=== PATIENT | male | born 1960 | race Caucasian/White ===

== ENCOUNTER 2016-09-06 15:11 | Emergency (ER) | payer OTHER ==
[~2016-09-06] VITALS: Ht 177.8 cm; Wt 95.3 kg
[~2016-09-06 15:11] MED LIST: AUGMENTIN 875875 MG PO; CARAFATE1 G1 PO; CIPRO500 MG PO; CIPROFLOXACIN500 MG PO; COLACE100 MG PO; CYMBALTA60 MG PO; FLAGYL500 MG PO; LOMOTIL 0.025 M1 TA1 PO; MORPHINE SULFAT15 MG PO; NEXIUM40 MG PO; PANTOPRAZOLE SO40 MG PO; PERCOCET 325 MG1 TA2 PO; PERCOCET 325 MG1 TA7 PO; PRECOSE25 MG PO; PRISTIQ50 MG PO; VICODIN 5/500 505 MG PO; ZOFRAN4 MG PO; ZYRTEC10 M1 PO; [UNRECOGNIZED DRUG - REMARK]
[2016-09-06] MEDS ORDERED: PANTOPRAZOLE SO40 MG PO (15:27)
[2016-09-06] MEDS ORDERED: Zofran4 MG PO (15:27)
[2016-09-06] MEDS ORDERED: VENLAFAXINE150 MG PO (15:28)
[2016-09-06] MEDS ORDERED: MORPHINE SULFAT30 M9 PO (15:29)
[2016-09-06] MEDS ORDERED: ACETAMINOPHEN-O1 TAB PO (15:29)
[2016-09-06 16:24] LABS: BASO % 0.5 % (0.0-1.0); EOS # 0.3 10*3/uL (0.0-0.4); EOS % 5.3 % (1.0-4.0); HEMATOCRIT 37.6 % (42.0-52.0); HEMOGLOBIN 11.6 g/dl (14.0-18.0); LYMPH # 1.1 10*3/uL (1.3-4.4); LYMPH % 20.2 % (27.0-41.0); MEAN CELL VOLUME 83.4 fl (80.0-94.0); MEAN CORPUSCULAR HGB 25.7 pg (27.0-31.0); MEAN CORPUSCULAR HGB CONC 30.9 g/dl (33.0-37.0); MEAN PLATELET VOLUME 9.1 fl (9.6-12.3); MONO # 0.5 10*3/uL (0.1-1.0); MONO % 9.2 % (3.0-9.0); NEUT # 3.6 10*3/uL (2.3-7.9); NEUT % 64.4 % (47.0-73.0); PLATELET COUNT AUTOMATED 217 10*3/uL (130-400); RED BLOOD COUNT 4.51 10*6/uL (4.50-5.90); RED CELL DISTRI WIDTH 16.4 % (0-14.5); WHITE BLOOD COUNT 5.6 10*3/uL (4.8-10.8)
[2016-09-06 16:28] LABS: BILIRUBIN NEGATIVE (NEGATIVE); BLOOD NEGATIVE (NEGATIVE); CLARITY CLEAR (CLEAR); COLOR YELLOW (YELLOW); GLUCOSE NEGATIVE (NEGATIVE); KETONE NEGATIVE (NEGATIVE); LEUKO ESTERASE NEGATIVE (NEGATIVE); NITRITE NEGATIVE (NEGATIVE); PH 5.5 (5.0-9.0); PROTEIN NEGATIVE (NEGATIVE); SPECIFIC GRAVITY 1.015 (1.005-1.030); UROBILINOGEN 0.2 E.U./dl (0.2-1.0)
[2016-09-06 16:35] LABS: RBC 0-2 rbc/hpf (0-2); URINE REFLEX COMMENT NO (NO); WBC 0-2 wbc/hpf (0-5)
[2016-09-06 16:41] LABS: ALBUMIN 3.6 gm/dl (3.1-4.5); ALKALINE PHOSPHATASE 89 U/L (45-117); BILIRUBIN, TOTAL 0.3 mg/dl (0.2-1.0); BUN 15 mg/dl (7-24); CARBON DIOXIDE 28 mmol/L (21-32); CHLORIDE 106 mmol/L (98-107); EST GLOM FILT AFRICAN AMERICAN > 60 ml/min; GLUCOSE 94 mg/dL (65-99); POTASSIUM 3.8 mmol/L (3.5-5.1); SGOT/AST 28 IU/L (3-35); SGPT/ALT 59 U/L (12-78); SODIUM 142 mmol/L (136-145); TOTAL PROTEIN 7.1 gm/dL (6.4-8.2); TROPONIN I < 0.015 ng/ml (<0.5)
[2016-09-06] MEDS ORDERED: NAPROSYN500 MG PO (17:02)
[2016-09-06] MEDS ORDERED: ZOFRAN4 MG PO (17:02)
== END 2016-09-06 17:28 | disposition home or self-care (01) ==
LOC: ED 15:11
PROVIDERS: Nurse Practitioner Family
DX: R10.9 Unspecified abdominal pain (principal); R03.0 Elevated blood-pressure reading, without diagnosis of hypertension; Z90.49 Acquired absence of other specified parts of digestive tract

== ENCOUNTER 2016-11-25 13:52 | Inpatient (IN) | payer OTHER ==
[~2016-11-25] VITALS: Ht 177.8 cm; Wt 90.8 kg
[~2016-11-25 13:52] MED LIST changes: +ACETAMINOPHEN-O1 TAB PO; +MORPHINE SULFAT30 M9 PO; +NAPROSYN500 MG PO; +VENLAFAXINE150 MG PO; +Zofran4 MG PO
[2016-11-25 13:57] VITALS: BP 165/96
[2016-11-25] MEDS ORDERED: CREON 120000 U-1 ECC PO (13:58)
[2016-11-25] MEDS ORDERED: DICYCLOMINE HCL10 MG PO (13:59)
[2016-11-25] MEDS ORDERED: SILENOR3 M1 PO (13:59)
[2016-11-25 15:06] LABS: BASO % 0.4 % (0.0-1.0); EOS # 0.2 10*3/uL (0.0-0.4); EOS % 2.7 % (1.0-4.0); HEMOGLOBIN 12.4 g/dl (14.0-18.0); LYMPH # 1.5 10*3/uL (1.3-4.4); MEAN CELL VOLUME 80.9 fl (80.0-94.0); MEAN CORPUSCULAR HGB 25.7 pg (27.0-31.0); MEAN CORPUSCULAR HGB CONC 31.8 g/dl (33.0-37.0); MEAN PLATELET VOLUME 9.1 fl (9.6-12.3); MONO # 0.6 10*3/uL (0.1-1.0); MONO % 8.6 % (3.0-9.0); NEUT # 4.9 10*3/uL (2.3-7.9); NEUT % 66.8 % (47.0-73.0); PLATELET COUNT AUTOMATED 257 10*3/uL (130-400); RED BLOOD COUNT 4.82 10*6/uL (4.50-5.90); RED CELL DISTRI WIDTH 16.4 % (0-14.5); WHITE BLOOD COUNT 7.3 10*3/uL (4.8-10.8)
[2016-11-25 15:24] LABS: BUN 16 mg/dl (7-24); CARBON DIOXIDE 27 mmol/L (21-32); CHLORIDE 105 mmol/L (98-107); EST GLOM FILT AFRICAN AMERICAN > 60 ml/min; GLUCOSE 102 mg/dL (65-99); POTASSIUM 4.6 mmol/L (3.5-5.1); SODIUM 142 mmol/L (136-145)
[2016-11-25 15:27] VITALS: BP 132/87
[2016-11-25 15:31] LABS: TROPONIN I < 0.015 ng/ml (<0.045)
[2016-11-25 16:06] VITALS: BP 135/91
[2016-11-25 16:18] LABS: ALBUMIN 3.9 gm/dl (3.1-4.5); ALKALINE PHOSPHATASE 82 U/L (45-117); BILIRUBIN, DIRECT < 0.1 mg/dL (0.0-0.2); BILIRUBIN, TOTAL 0.1 mg/dl (0.2-1.0); SGOT/AST 44 IU/L (3-35); SGPT/ALT 52 U/L (12-78); TOTAL PROTEIN 7.5 gm/dL (6.4-8.2)
[2016-11-25 16:50] VITALS: BP 145/94
[2016-11-25 20:00] VITALS: BP 121/68
[2016-11-26] VITALS: BP 114/76
[2016-11-26 06:29] LABS: BASO % 0.6 % (0.0-1.0); EOS # 0.2 10*3/uL (0.0-0.4); EOS % 3.9 % (1.0-4.0); HEMATOCRIT 35.5 % (42.0-52.0); LYMPH # 1.4 10*3/uL (1.3-4.4); MEAN CELL VOLUME 81.6 fl (80.0-94.0); MEAN CORPUSCULAR HGB 25.3 pg (27.0-31.0); MONO # 0.5 10*3/uL (0.1-1.0); MONO % 9.6 % (3.0-9.0); NEUT # 2.8 10*3/uL (2.3-7.9); NEUT % 57.5 % (47.0-73.0); PLATELET COUNT AUTOMATED 225 10*3/uL (130-400); RED BLOOD COUNT 4.35 10*6/uL (4.50-5.90); RED CELL DISTRI WIDTH 16.3 % (0-14.5); WHITE BLOOD COUNT 4.9 10*3/uL (4.8-10.8)
[2016-11-26 06:45] LABS: ALBUMIN 3.2 gm/dl (3.1-4.5); ALKALINE PHOSPHATASE 86 U/L (45-117); BILIRUBIN, TOTAL 0.5 mg/dl (0.2-1.0); BUN 14 mg/dl (7-24); CARBON DIOXIDE 30 mmol/L (21-32); CHLORIDE 108 mmol/L (98-107); EST GLOM FILT AFRICAN AMERICAN > 60 ml/min; GLUCOSE 90 mg/dL (65-99); PHOSPHOROUS 3.5 mg/dL (2.5-4.9); POTASSIUM 4.1 mmol/L (3.5-5.1); SGOT/AST 182 IU/L (3-35); SGPT/ALT 162 U/L (12-78); SODIUM 141 mmol/L (136-145); TOTAL PROTEIN 6.2 gm/dL (6.4-8.2)
[2016-11-26 07:05] LABS: FOLIC ACID 20.33 ng/mL (>5.38)
[2016-11-26 08:00] VITALS: BP 116/67
[2016-11-26 12:00] VITALS: BP 120/68
[2016-11-26 16:00] VITALS: BP 124/73
[2016-11-26 20:00] VITALS: BP 143/88
[2016-11-27] VITALS: BP 130/74
[2016-11-27 08:00] VITALS: BP 150/80
[2016-11-27] MEDS ORDERED: ACETAMINOPHEN-H1 TA2 PO (10:09)
[2016-11-27 12:00] VITALS: BP 134/80
== END 2016-11-27 13:34 | disposition home or self-care (01) | DRG 389 ==
LOC: ED 13:52 → 4E 16:12 → EDHOLD 16:12 → 4E 16:38
PROVIDERS: Emergency Medicine; Internal Medicine
DX: K56.60 Unspecified intestinal obstruction (principal); F33.1 Major depressive disorder, recurrent, moderate; E44.0 Moderate protein-calorie malnutrition; K91.1 Postgastric surgery syndromes; J30.1 Allergic rhinitis due to pollen; K44.9 Diaphragmatic hernia without obstruction or gangrene; K21.9 Gastro-esophageal reflux disease without esophagitis; F41.9 Anxiety disorder, unspecified; E11.9 Type 2 diabetes mellitus without complications; R03.0 Elevated blood-pressure reading, without diagnosis of hypertension; Z96.659 Presence of unspecified artificial knee joint; Z90.49 Acquired absence of other specified parts of digestive tract; Z82.49 Family history of ischemic heart disease and other diseases of the circulatory system; Z83.6 Family history of other diseases of the respiratory system; Z83.3 Family history of diabetes mellitus; Z79.899 Other long term (current) drug therapy; Z68.28 Body mass index [BMI] 28.0-28.9, adult

== ENCOUNTER 2016-12-14 16:32 | Emergency (ER) | payer OTHER ==
[~2016-12-14] VITALS: Ht 177.8 cm; Wt 95.3 kg
[~2016-12-14 16:32] MED LIST changes: +ACETAMINOPHEN-H1 TA2 PO; +CREON 120000 U-1 ECC PO; +DICYCLOMINE HCL10 MG PO; +SILENOR3 M1 PO
[2016-12-14 17:17] LABS: BASO % 0.3 % (0.0-1.0); EOS # 0.2 10*3/uL (0.0-0.4); EOS % 3.6 % (1.0-4.0); HEMATOCRIT 34.7 % (42.0-52.0); HEMOGLOBIN 10.8 g/dl (14.0-18.0); LYMPH # 1.2 10*3/uL (1.3-4.4); LYMPH % 17.9 % (27.0-41.0); MEAN CELL VOLUME 81.8 fl (80.0-94.0); MEAN CORPUSCULAR HGB 25.5 pg (27.0-31.0); MEAN CORPUSCULAR HGB CONC 31.1 g/dl (33.0-37.0); MEAN PLATELET VOLUME 8.8 fl (9.6-12.3); MONO # 0.9 10*3/uL (0.1-1.0); MONO % 12.7 % (3.0-9.0); NEUT # 4.4 10*3/uL (2.3-7.9); NEUT % 65.1 % (47.0-73.0); PLATELET COUNT AUTOMATED 215 10*3/uL (130-400); RED BLOOD COUNT 4.24 10*6/uL (4.50-5.90); RED CELL DISTRI WIDTH 16.1 % (0-14.5); WHITE BLOOD COUNT 6.8 10*3/uL (4.8-10.8)
[2016-12-14 17:33] LABS: ALBUMIN 3.4 gm/dl (3.1-4.5); ALKALINE PHOSPHATASE 72 U/L (45-117); BILIRUBIN, TOTAL 0.2 mg/dl (0.2-1.0); BUN 15 mg/dl (7-24); CARBON DIOXIDE 27 mmol/L (21-32); CHLORIDE 106 mmol/L (98-107); EST GLOM FILT AFRICAN AMERICAN > 60 ml/min; GLUCOSE 101 mg/dL (65-99); POTASSIUM 3.9 mmol/L (3.5-5.1); SGOT/AST 25 IU/L (3-35); SGPT/ALT 56 U/L (12-78); SODIUM 142 mmol/L (136-145); TOTAL PROTEIN 6.7 gm/dL (6.4-8.2)
[2016-12-14 17:34] LABS: TROPONIN I < 0.015 ng/ml (<0.045)
[2016-12-14 18:16] LABS: BILIRUBIN NEGATIVE (NEGATIVE); BLOOD NEGATIVE (NEGATIVE); CLARITY CLEAR (CLEAR); COLOR YELLOW (YELLOW); GLUCOSE NEGATIVE (NEGATIVE); KETONE NEGATIVE (NEGATIVE); LEUKO ESTERASE NEGATIVE (NEGATIVE); NITRITE NEGATIVE (NEGATIVE); PH 6.5 (5.0-9.0); PROTEIN NEGATIVE (NEGATIVE); UROBILINOGEN 0.2 E.U./dl (0.2-1.0)
[2016-12-14 18:22] LABS: EPITHELIAL CELLS 0-2; URINE REFLEX COMMENT NO (NO); WBC 0-2 wbc/hpf (0-5)
== END 2016-12-14 20:40 | disposition short-term general hospital (02) ==
LOC: ED 16:32
PROVIDERS: Emergency Medicine
DX: K44.9 Diaphragmatic hernia without obstruction or gangrene (principal); R10.12 Left upper quadrant pain; K21.9 Gastro-esophageal reflux disease without esophagitis; F41.9 Anxiety disorder, unspecified; Z85.01 Personal history of malignant neoplasm of esophagus; Z98.890 Other specified postprocedural states; Z90.49 Acquired absence of other specified parts of digestive tract; Z87.891 Personal history of nicotine dependence; Z79.899 Other long term (current) drug therapy

== ENCOUNTER → 2017-01-22 | Outpatient (CLI) | payer OTHER ==
--- NOTE | ~2017-01-22 | SLPPN ---
[place], [place] TELESALES REPRESENTATIVE PROGRESS NOTE NAME: SUSAN QUINTERO UNIT #: [id number] ROOM: DOCTOR: FANG STARK Speech Language Pathology Treatment Note Page 1 1 of Patient Name: SUSAN QUINTERO Date: 01/22/2017 10:21 AM : 1960 SOC Date: 01/22/2017 [facility]: [facility] Provider #: [id number] Treating Clinician: ROMAN Wolfe-TELESALES REPRESENTATIVE Referring Physician: FANG STARK Onset Date Description Code Primary Diagnosis: 01/22/2017 A000.00 DIAGNOSIS FROM INTERFACE NOT FOUND IN [facility] TABLE Time In: 09:00 AM Time Out: 10:00 AM TELESALES REPRESENTATIVE Interventions and CPT Codes Consisted of: CPT Code Modifiers Minutes Units MOTION FLUOROSCOPY/SWALLOW 49465 60 1 Total Minutes: 60 Total Timed Minutes: 0 Total Untimed Minutes: 60 Total Units: 1 Total Timed Units: 0 Total Untimed Units: 1 01/22/2017 10:22:31 AM ROMAN Wolfe-TELESALES REPRESENTATIVE Date/Time State License #: [id number] CM:LISANDRO 1028 1028 [facility] THER[facility] [place]
--- NOTE | ~2017-01-22 | SLPPOC ---
[place], [place] UTILITIES GROUND WORKER PLAN OF CARE NAME: SUSAN QUINTERO UNIT #: [id number] ROOM: DOCTOR: FANG STARK Speech Language Pathology Plan of Care Page 1 1 (Initial Evaluation) of Patient Name: SUSAN QUINTERO Date: 01/22/2017 10:20 AM : 1960 SOC Date: 01/22/2017 Provider: [facility] Provider #: [id number] Treating Clinician: ROMAN Wolfe-UTILITIES GROUND WORKER Referring Physician: FANG STARK Visits From SOC: 1 Onset Date Description Code Primary Diagnosis: 01/22/2017 A000.00 DIAGNOSIS FROM INTERFACE NOT FOUND IN [facility] TABLE Subjective Comments: Initial evaluation created to initiate the electronic medical record. Please see [facility] for details. Initial Level Goals Functional Limitation Reporting Swallowing G8996 - Swallowing functional limitation, current status at therapy episode outset and at reporting intervals Current Status: CI - At least 1 percent but less than 20 percent impaired, limited or restricted G8997 - Swallowing functional limitation, projected goal status, at therapy episode outset, at reporting intervals, and at discharge or to end reporting Goal Status: CI - At least 1 percent but less than 20 percent impaired, limited or restricted G8998 - Swallowing functional limitation, discharge status, at discharge from therapy or to end reporting Discharge Status: CI - At least 1 percent but less than 20 percent impaired, limited or restricted 01/22/2017 10:21:42 AM FANG STARK Date/Time ROMAN Wolfe-UTILITIES GROUND WORKER Date I certify the need for these services furnished under this plan of treatment while under my care. State License #: [id number] CM:SLPPOC 1028 1028 IS THERAP[facility] [place]
--- NOTE | ~2017-01-22 | PROC NOTE ---
[place], [place] PROCEDURE NOTE NAME: SUSAN QUINTERO UNIT #: [id number] ROOM: DOCTOR: VONNIECARLOS BIRTHDATE: [birth year] DOS: 01/22/2017 MODIFIED BARIUM SWALLOW DOCTOR: Dr. Sander Brantley. RADIOLOGIST: Dr. Boyer. BACKGROUND INFORMATION: The patient a 56-year-old male was seen for a modified barium swallow. This test was ordered to view the anatomy and physiology of the swallowing mechanism and determine most appropriate means of nutrition. The patient's medical history is significant for esophageal cancer with esophagectomy. He was initially admitted to the hospital for 12/15/16 with a diagnosis of abdominal pain. Reports provided indicate status post EGD dilation, R-VATS, complete bipolar exclusion and postoperative respiratory failure. The patient had multiple intubations and underwent tracheotomy, 01/02/17. He has been weaned from that. The patient has had multiple hernia revisions and repairs. He is currently n.p.o. and fed by J tube. The patient has a spit fistula. He underwent a prior modified barium swallow at [facility], 01/08/17. At that time, he exhibited a moderate pharyngeal stage dysphagia due to reduced hyolaryngeal elevation, incomplete epiglottic inversion and reduced pharyngeal constriction. He was recommended n.p.o. For today's assessment, the patient was alert and easily able to follow all commands. Respiratory status was within normal limits. Oral peripheral examination revealed presence of natural teeth, which were in good condition. Lingual, labial, and buccal skills were within normal limits in terms of strength, range of motion, and coordination. The patient's volitional cough was adequate. Volitional swallow was weak and appeared reduced in elevation. METHODS AND MATERIALS USED FOR THE EXAM: The patient was positioned in the lateral plane and examination was viewed under fluoroscopy. The patient was presented with a variety of consistencies to assess swallowing skills including applesauce mixed with barium presented in one-quarter and one-half teaspoon amounts. Barium-coated banana presented in bite size pieces and thin liquid barium taken by cup. The patient took thin liquids independently in both small sips and larger sip size amount. ORAL PHASE: The patient achieved adequate labial seal around cup and spoon with no anterior loss. Bolus formation and transit were adequate with all consistencies. Mastication of soft solids was adequate. Tongue to palate contact was within normal limits. Tongue to posterior pharyngeal wall contact was mildly impaired with pureed and solid. Velar functioning was within normal limits with no nasal regurgitation. PHARYNGEAL PHASE: The pharyngeal swallow occurred within a timely manner. The patient's swallow [place], [place] PROCEDURE NOTE NAME: SUSAN QUINTERO UNIT #: [id number] ROOM: DOCTOR: CARLOS SHANKAR BIRTHDATE: [birth year] was mildly weak in general, laryngeal elevation was mildly reduced; however, no penetration or aspiration occurred with any consistency. The patient did present with residue in the valleculae with pureed and soft solid. He was not aware of this and therefore, did not independently re-swallow to clear the residue. This residue did clear when given swallows of thin liquids. ESOPHAGEAL PHASE: This phase of the swallow was not formally assessed during this examination. IMPRESSIONS AND RECOMMENDATIONS: Based upon assessment results, this 56-year-old patient presented with a mild oropharyngeal dysphagia. Tongue to posterior pharyngeal wall contact was decreased resulting in residue in the vallecula with pureed and soft solid. The patient was not aware of the residue to independently clear it. However, this residue did clear with liquid wash. Laryngeal elevation was mildly weak and reduced. No penetration or aspiration occurred with any consistency. Once medical clearance is received, recommended the patient begin a soft diet and thin liquids. Recommend use of safe swallow strategies such as small bites and sips, upright positioning for meals, alternating liquids and solids and remaining upright 30 minutes post-mealtime. The patient would also benefit from outpatient therapy to target pharyngeal strengthening exercises in order to further improve swallowing abilities. Results and recommendations were shared with the patient who verbalized understanding. Thank you very much for this referral. Should you have any questions regarding this patient, please contact the speech pathologist at [phone]. CARLOS SHANKAR CM:PROCNOTE:PROCEDURE NOTE [id number] CARLOS SHANKAR
--- NOTE | ~2017-01-22 | SLPIE ---
[place], [place] PRINTING ENGINEER INITIAL EVALUATION NAME: SUSAN QUINTERO UNIT #: [id number] ROOM: DOCTOR: FANG STARK Speech Language Pathology Initial Evaluation Page 1 1 of Patient Name: SUSAN QUINTERO Date: 01/22/2017 10:20 AM : 1960 SOC Date: 01/22/2017 Provider: [facility] Provider #: [id number] Treating Clinician: ROMAN Wolfe-PRINTING ENGINEER Referring Physician: FANG STARK Patient Information Address: [address] [place] [address] Physician: FANG STARK Physician #: City, [facility], Zip: [place], [place] [address] Occupation: Unknown # of Approved Visits: 0 Gender: Male Case Fitter: PRESTON LEON Rehabilitation Information / History Onset Date Code Description Primary Diagnosis: 01/22/2017 A000.00 DIAGNOSIS FROM INTERFACE NOT FOUND IN [facility] TABLE Subjective Comments: Initial evaluation created to initiate the electronic medical record. Please see [facility] for details. Clinical Findings Functional Goals Functional Limitation Reporting Swallowing G8996 - Swallowing functional limitation, current status at therapy episode outset and at reporting intervals Current Status: CI - At least 1 percent but less than 20 percent impaired, limited or restricted G8997 - Swallowing functional limitation, projected goal status, at therapy episode outset, at reporting intervals, and at discharge or to end reporting Goal Status: CI - At least 1 percent but less than 20 percent impaired, limited or restricted G8998 - Swallowing functional limitation, discharge status, at discharge from therapy or to end reporting Discharge Status: CI - At least 1 percent but less than 20 percent impaired, limited or restricted 01/22/2017 10:21:42 AM ROMAN Wolfe-PRINTING ENGINEER Date/Time [place], [place] PRINTING ENGINEER INITIAL EVALUATION NAME: SUSAN QUITNERO UNIT #: [id number] ROOM: DOCTOR: FANG STARK [facility] License #: [id number] CM:JONY 1028 1028 IS THERAPY [place]
== END | disposition home or self-care (01) ==
LOC: RAD/SH 08:55
DX: C15.9 Malignant neoplasm of esophagus, unspecified (principal); K44.9 Diaphragmatic hernia without obstruction or gangrene; Z90.49 Acquired absence of other specified parts of digestive tract

== ENCOUNTER 2017-02-02 09:53 | Emergency (ER) | payer OTHER ==
[~2017-02-02] VITALS: Wt 83.0 kg
[2017-02-02] MEDS ORDERED: NEXIUM20 M1 PO (09:58)
[2017-02-02] MEDS ORDERED: TOPROL XL25 MG PO (09:58)
[2017-02-02] MEDS ORDERED: SEROQUEL50 MG PO (09:59)
[2017-02-02] MEDS ORDERED: OXYCODONE HCL5 M1 PO (09:59)
[2017-02-02 10:39] LABS: BASO % 0.3 % (0.0-1.0); EOS # 0.1 10*3/uL (0.0-0.4); EOS % 2.1 % (1.0-4.0); HEMATOCRIT 41.6 % (42.0-52.0); LYMPH # 1.2 10*3/uL (1.3-4.4); MEAN CELL VOLUME 85.6 fl (80.0-94.0); MEAN CORPUSCULAR HGB 26.7 pg (27.0-31.0); MEAN CORPUSCULAR HGB CONC 31.3 g/dl (33.0-37.0); MEAN PLATELET VOLUME 9.2 fl (9.6-12.3); MONO # 0.6 10*3/uL (0.1-1.0); MONO % 8.9 % (3.0-9.0); NEUT # 4.8 10*3/uL (2.3-7.9); NEUT % 70.6 % (47.0-73.0); PLATELET COUNT AUTOMATED 266 10*3/uL (130-400); RED BLOOD COUNT 4.86 10*6/uL (4.50-5.90); RED CELL DISTRI WIDTH 18.5 % (0-14.5); WHITE BLOOD COUNT 6.8 10*3/uL (4.8-10.8)
[2017-02-02 10:42] LABS: BILIRUBIN NEGATIVE (NEGATIVE); BLOOD NEGATIVE (NEGATIVE); CLARITY SL CLOUDY (CLEAR); COLOR YELLOW (YELLOW); GLUCOSE 2+ (NEGATIVE); KETONE NEGATIVE (NEGATIVE); LEUKO ESTERASE NEGATIVE (NEGATIVE); NITRITE NEGATIVE (NEGATIVE); PROTEIN TRACE (NEGATIVE); SPECIFIC GRAVITY <= 1.005 (1.005-1.030)
[2017-02-02 10:47] LABS: PROTHROMBIN TIME 10.6 SECONDS (9.0-12.4)
[2017-02-02 10:54] LABS: MUCOUS TRACE; URINE REFLEX COMMENT NO (NO)
[2017-02-02 10:55] LABS: ALBUMIN 3.4 gm/dl (3.1-4.5); ALKALINE PHOSPHATASE 121 U/L (45-117); BILIRUBIN, TOTAL 0.4 mg/dl (0.2-1.0); BUN 18 mg/dl (7-24); CARBON DIOXIDE 28 mmol/L (21-32); CHLORIDE 103 mmol/L (98-107); CKMB 0.7 ng/ml (0.5-3.6); CPK 34 U/L (39-308); EST GLOM FILT AFRICAN AMERICAN > 60 ml/min; GLUCOSE 97 mg/dL (65-99); MAGNESIUM 2.3 mg/dL (1.5-2.1); POTASSIUM 4.1 mmol/L (3.5-5.1); SGOT/AST 15 IU/L (3-35); SGPT/ALT 20 U/L (12-78); SODIUM 142 mmol/L (136-145); TOTAL PROTEIN 7.6 gm/dL (6.4-8.2)
[2017-02-02 10:57] LABS: C-REACTIVE PROTEIN < 0.29 MG/DL (0-0.3); TROPONIN I < 0.015 ng/ml (<0.045)
[2017-02-02] MEDS ORDERED: OXYCODONE H5 MG/5 ML PO (14:28)
== END 2017-02-02 15:41 | disposition home or self-care (01) ==
LOC: ED 09:53
PROVIDERS: Emergency Medicine
DX: G89.29 Other chronic pain (principal); R10.9 Unspecified abdominal pain; K21.9 Gastro-esophageal reflux disease without esophagitis; E11.9 Type 2 diabetes mellitus without complications; Z79.899 Other long term (current) drug therapy

== ENCOUNTER → 2017-02-22 | Outpatient (CLI) | payer OTHER ==
[~2017-02-22] MED LIST changes: +NEURONTIN250 MG/5 M PO; +NEXIUM20 M1 PO; +OXYCODONE H5 MG/5 ML PO; +OXYCODONE HCL5 M1 PO; +SEROQUEL50 MG PO; +TOPROL XL25 MG PO
== END | disposition home or self-care (01) ==
LOC: LAB 07:02
DX: E44.1 Mild protein-calorie malnutrition (principal)

== ENCOUNTER 2017-02-23 10:57 | Emergency (ER) | payer OTHER ==
[~2017-02-23] VITALS: Ht 177.8 cm; Wt 83.0 kg
[~2017-02-23 10:57] MED LIST changes: -NEURONTIN250 MG/5 M PO
[2017-02-23] MEDS ORDERED: NEURONTIN250 MG/5 M PO (11:15)
[2017-02-23 11:27] LABS: BILIRUBIN NEGATIVE (NEGATIVE); BLOOD NEGATIVE (NEGATIVE); CLARITY CLEAR (CLEAR); COLOR YELLOW (YELLOW); GLUCOSE 3+ (NEGATIVE); KETONE NEGATIVE (NEGATIVE); LEUKO ESTERASE NEGATIVE (NEGATIVE); NITRITE NEGATIVE (NEGATIVE); PROTEIN NEGATIVE (NEGATIVE); SPECIFIC GRAVITY <= 1.005 (1.005-1.030); UROBILINOGEN 0.2 E.U./dl (0.2-1.0)
[2017-02-23 11:33] LABS: BACTERIA TRACE; URINE REFLEX COMMENT NO (NO)
[2017-02-23 12:07] LABS: BASO % 0.2 % (0.0-1.0); EOS # 0.1 10*3/uL (0.0-0.4); EOS % 1.1 % (1.0-4.0); HEMATOCRIT 37.4 % (42.0-52.0); LYMPH # 0.9 10*3/uL (1.3-4.4); LYMPH % 15.1 % (27.0-41.0); MEAN CELL VOLUME 86.4 fl (80.0-94.0); MEAN CORPUSCULAR HGB 27.7 pg (27.0-31.0); MEAN CORPUSCULAR HGB CONC 32.1 g/dl (33.0-37.0); MEAN PLATELET VOLUME 8.9 fl (9.6-12.3); MONO # 0.6 10*3/uL (0.1-1.0); MONO % 9.9 % (3.0-9.0); NEUT # 4.5 10*3/uL (2.3-7.9); NEUT % 73.4 % (47.0-73.0); PLATELET COUNT AUTOMATED 240 10*3/uL (130-400); RED BLOOD COUNT 4.33 10*6/uL (4.50-5.90); RED CELL DISTRI WIDTH 16.6 % (0-14.5); WHITE BLOOD COUNT 6.2 10*3/uL (4.8-10.8)
[2017-02-23 12:22] LABS: ALBUMIN 3.3 gm/dl (3.1-4.5); ALKALINE PHOSPHATASE 83 U/L (45-117); BILIRUBIN, TOTAL 0.3 mg/dl (0.2-1.0); BUN 16 mg/dl (7-24); CARBON DIOXIDE 29 mmol/L (21-32); CHLORIDE 106 mmol/L (98-107); EST GLOM FILT AFRICAN AMERICAN > 60 ml/min; GLUCOSE 101 mg/dL (65-99); MAGNESIUM 2.2 mg/dL (1.5-2.1); SGOT/AST 8 IU/L (3-35); SGPT/ALT 18 U/L (12-78); SODIUM 143 mmol/L (136-145); TOTAL PROTEIN 7.1 gm/dL (6.4-8.2)
[2017-02-23 12:27] LABS: C-REACTIVE PROTEIN < 0.29 MG/DL (0-0.3)
== END 2017-02-23 16:40 | disposition home or self-care (01) ==
LOC: ED 10:57
PROVIDERS: Emergency Medicine
DX: G89.29 Other chronic pain (principal); R10.31 Right lower quadrant pain; R11.0 Nausea; R19.7 Diarrhea, unspecified; Z87.891 Personal history of nicotine dependence; Z90.49 Acquired absence of other specified parts of digestive tract; K21.9 Gastro-esophageal reflux disease without esophagitis; E11.9 Type 2 diabetes mellitus without complications; Z79.899 Other long term (current) drug therapy

== ENCOUNTER 2017-03-14 17:27 | Emergency (ER) | payer OTHER ==
[~2017-03-14] VITALS: Ht 177.8 cm; Wt 83.0 kg
[~2017-03-14 17:27] MED LIST changes: +NEURONTIN250 MG/5 M PO
== END 2017-03-14 22:59 | disposition home or self-care (01) ==
LOC: ED 17:27
DX: M25.532 Pain in left wrist (principal); M25.432 Effusion, left wrist; R06.02 Shortness of breath; Z79.899 Other long term (current) drug therapy; Z87.891 Personal history of nicotine dependence

== ENCOUNTER 2017-03-15 13:30 | Emergency (ER) | payer OTHER ==
[~2017-03-15] VITALS: Ht 177.8 cm; Wt 80.3 kg
[2017-03-15 14:08] LABS: BASO % 0.3 % (0.0-1.0); EOS # 0.1 10*3/uL (0.0-0.4); EOS % 1.2 % (1.0-4.0); HEMATOCRIT 40.6 % (42.0-52.0); HEMOGLOBIN 12.8 g/dl (14.0-18.0); IG # 0.1 10*3/uL (0.0-0.1); LYMPH # 1.1 10*3/uL (1.3-4.4); MEAN CELL VOLUME 85.1 fl (80.0-94.0); MEAN CORPUSCULAR HGB 26.8 pg (27.0-31.0); MEAN CORPUSCULAR HGB CONC 31.5 g/dl (33.0-37.0); MEAN PLATELET VOLUME 9.8 fl (9.6-12.3); MONO # 0.6 10*3/uL (0.1-1.0); MONO % 10.2 % (3.0-9.0); NEUT % 68.5 % (47.0-73.0); PLATELET COUNT AUTOMATED 258 10*3/uL (130-400); RED BLOOD COUNT 4.77 10*6/uL (4.50-5.90); RED CELL DISTRI WIDTH 15.4 % (0-14.5); WHITE BLOOD COUNT 5.9 10*3/uL (4.8-10.8)
[2017-03-15 14:20] LABS: ALBUMIN 3.7 gm/dl (3.1-4.5); ALKALINE PHOSPHATASE 79 U/L (45-117); BILIRUBIN, TOTAL 0.5 mg/dl (0.2-1.0); BUN 16 mg/dl (7-24); CARBON DIOXIDE 22 mmol/L (21-32); CHLORIDE 113 mmol/L (98-107); CKMB 0.8 ng/ml (0.5-3.6); CPK 71 U/L (39-308); EST GLOM FILT AFRICAN AMERICAN > 60 ml/min; GLUCOSE 125 mg/dL (65-99); INTERNATIONAL NORM RATIO 1.1 (2.0-3.5); MAGNESIUM 2.2 mg/dL (1.5-2.1); POTASSIUM 3.6 mmol/L (3.5-5.1); PROTHROMBIN TIME 11.8 SECONDS (9.0-12.4); SGOT/AST 17 IU/L (3-35); SGPT/ALT 27 U/L (12-78); SODIUM 144 mmol/L (136-145); TOTAL PROTEIN 7.9 gm/dL (6.4-8.2)
[2017-03-15 14:22] LABS: C-REACTIVE PROTEIN < 0.29 MG/DL (0-0.3); TROPONIN I < 0.015 ng/ml (<0.045)
== END 2017-03-15 21:55 | disposition short-term general hospital (02) ==
LOC: ED 13:30
PROVIDERS: Emergency Medicine
DX: R06.02 Shortness of breath (principal); R19.7 Diarrhea, unspecified; K21.9 Gastro-esophageal reflux disease without esophagitis; E11.9 Type 2 diabetes mellitus without complications; Z87.891 Personal history of nicotine dependence; Z90.49 Acquired absence of other specified parts of digestive tract; Z79.899 Other long term (current) drug therapy

== ENCOUNTER → 2017-04-04 | Outpatient (CLI) | payer OTHER ==
[2017-04-04 08:13] LABS: BASO % 0.3 % (0.0-1.0); EOS # 0.3 10*3/uL (0.0-0.4); EOS % 7.7 % (1.0-4.0); HEMATOCRIT 37.8 % (42.0-52.0); HEMOGLOBIN 11.9 g/dl (14.0-18.0); LYMPH # 0.9 10*3/uL (1.3-4.4); LYMPH % 28.3 % (27.0-41.0); MEAN CELL VOLUME 86.3 fl (80.0-94.0); MEAN CORPUSCULAR HGB 27.2 pg (27.0-31.0); MEAN CORPUSCULAR HGB CONC 31.5 g/dl (33.0-37.0); MEAN PLATELET VOLUME 10.4 fl (9.6-12.3); MONO # 0.5 10*3/uL (0.1-1.0); MONO % 16.6 % (3.0-9.0); NEUT # 1.5 10*3/uL (2.3-7.9); NEUT % 46.8 % (47.0-73.0); PLATELET COUNT AUTOMATED 212 10*3/uL (130-400); RED BLOOD COUNT 4.38 10*6/uL (4.50-5.90); RED CELL DISTRI WIDTH 14.3 % (0-14.5); WHITE BLOOD COUNT 3.3 10*3/uL (4.8-10.8)
[2017-04-04 08:22] LABS: INTERNATIONAL NORM RATIO 1.1 (2.0-3.5); PROTHROMBIN TIME 11.3 SECONDS (9.0-12.4)
[2017-04-04 08:30] LABS: ALBUMIN 3.4 gm/dl (3.1-4.5); ALKALINE PHOSPHATASE 88 U/L (45-117); BILIRUBIN, DIRECT 0.1 mg/dL (0.0-0.2); BILIRUBIN, TOTAL 0.4 mg/dl (0.2-1.0); BUN 19 mg/dl (7-24); CARBON DIOXIDE 29 mmol/L (21-32); CHLORIDE 103 mmol/L (98-107); EST GLOM FILT AFRICAN AMERICAN > 60 ml/min; GLUCOSE 76 mg/dL (65-99); MAGNESIUM 1.9 mg/dL (1.5-2.1); PHOSPHOROUS 4.2 mg/dL (2.5-4.9); POTASSIUM 3.8 mmol/L (3.5-5.1); SGOT/AST 17 IU/L (3-35); SGPT/ALT 27 U/L (12-78); SODIUM 139 mmol/L (136-145)
== END | disposition home or self-care (01) ==
LOC: LAB 07:26 → CT 09:00
PROVIDERS: Specialist
DX: J98.4 Other disorders of lung (principal); C15.9 Malignant neoplasm of esophagus, unspecified; K44.9 Diaphragmatic hernia without obstruction or gangrene; R79.1 Abnormal coagulation profile; Z90.49 Acquired absence of other specified parts of digestive tract; Z98.890 Other specified postprocedural states

== ENCOUNTER 2017-04-09 17:12 | Inpatient (IN) | payer OTHER ==
[~2017-04-09] VITALS: Ht 177.8 cm; Wt 80.4 kg
[~2017-04-09 17:12] MED LIST changes: +NEURONTIN250 MG/5 M PEG; -NEURONTIN250 MG/5 M PO; +OXYCODONE HCL5 M1 PEG; -OXYCODONE HCL5 M1 PO; +SEROQUEL XR150 MG PEG; -SEROQUEL50 MG PO
[2017-04-09 17:19] VITALS: BP 120/80
[2017-04-09 17:39] VITALS: BP 115/66
[2017-04-09 18:06] LABS: BASO % 0.2 % (0.0-1.0); EOS # 0.1 10*3/uL (0.0-0.4); EOS % 1.5 % (1.0-4.0); HEMATOCRIT 37.7 % (42.0-52.0); HEMOGLOBIN 12.4 g/dl (14.0-18.0); LYMPH % 19.4 % (27.0-41.0); MEAN CELL VOLUME 82.9 fl (80.0-94.0); MEAN CORPUSCULAR HGB 27.3 pg (27.0-31.0); MEAN CORPUSCULAR HGB CONC 32.9 g/dl (33.0-37.0); MEAN PLATELET VOLUME 9.7 fl (9.6-12.3); MONO # 0.6 10*3/uL (0.1-1.0); MONO % 11.7 % (3.0-9.0); NEUT # 3.6 10*3/uL (2.3-7.9); PLATELET COUNT AUTOMATED 224 10*3/uL (130-400); RED BLOOD COUNT 4.55 10*6/uL (4.50-5.90); RED CELL DISTRI WIDTH 14.1 % (0-14.5); WHITE BLOOD COUNT 5.3 10*3/uL (4.8-10.8)
[2017-04-09 18:15] LABS: INTERNATIONAL NORM RATIO 1.1 (2.0-3.5); PROTHROMBIN TIME 11.4 SECONDS (9.0-12.4)
[2017-04-09 18:22] LABS: ALBUMIN 3.5 gm/dl (3.1-4.5); ALKALINE PHOSPHATASE 74 U/L (45-117); BILIRUBIN, TOTAL 0.4 mg/dl (0.2-1.0); BUN 18 mg/dl (7-24); CARBON DIOXIDE 23 mmol/L (21-32); CHLORIDE 107 mmol/L (98-107); EST GLOM FILT AFRICAN AMERICAN > 60 ml/min; GLUCOSE 100 mg/dL (65-99); POTASSIUM 3.6 mmol/L (3.5-5.1); SGOT/AST 15 IU/L (3-35); SGPT/ALT 21 U/L (12-78); SODIUM 139 mmol/L (136-145); TOTAL PROTEIN 7.1 gm/dL (6.4-8.2)
[2017-04-09 19:03] VITALS: BP 112/65
[2017-04-09 19:37] LABS: BILIRUBIN NEGATIVE (NEGATIVE); BLOOD NEGATIVE (NEGATIVE); CLARITY CLEAR (CLEAR); COLOR YELLOW (YELLOW); GLUCOSE NEGATIVE (NEGATIVE); KETONE 2+ (NEGATIVE); LEUKO ESTERASE NEGATIVE (NEGATIVE); NITRITE NEGATIVE (NEGATIVE); PH 8.5 (5.0-9.0); PROTEIN 1+ (NEGATIVE)
[2017-04-09 19:45] LABS: BACTERIA 1+; EPITHELIAL CELLS 0-2; RBC 0-2 rbc/hpf (0-2); URINE REFLEX COMMENT NO (NO); WBC 0-2 wbc/hpf (0-5)
[2017-04-09 20:58] VITALS: BP 115/72
[2017-04-09] MEDS ORDERED: DOXEPIN HC10 MG/1 ML PO (21:43)
[2017-04-09] MEDS ORDERED: FIBERSOURCE HN250 M3 PEG (21:49)
[2017-04-09 21:51] VITALS: BP 110/76
[2017-04-10] VITALS: BP 97/52
[2017-04-10 03:46] VITALS: BP 98/61
[2017-04-10 07:07] LABS: BASO % 0.3 % (0.0-1.0); EOS # 0.2 10*3/uL (0.0-0.4); EOS % 5.2 % (1.0-4.0); HEMOGLOBIN 11.2 g/dl (14.0-18.0); LYMPH # 0.9 10*3/uL (1.3-4.4); LYMPH % 24.5 % (27.0-41.0); MEAN CORPUSCULAR HGB 27.5 pg (27.0-31.0); MEAN PLATELET VOLUME 10.6 fl (9.6-12.3); MONO # 0.4 10*3/uL (0.1-1.0); MONO % 10.1 % (3.0-9.0); NEUT # 2.2 10*3/uL (2.3-7.9); NEUT % 59.6 % (47.0-73.0); PLATELET COUNT AUTOMATED 195 10*3/uL (130-400); RED BLOOD COUNT 4.07 10*6/uL (4.50-5.90); RED CELL DISTRI WIDTH 14.1 % (0-14.5); WHITE BLOOD COUNT 3.7 10*3/uL (4.8-10.8)
[2017-04-10 07:31] LABS: BUN 14 mg/dl (7-24); CARBON DIOXIDE 26 mmol/L (21-32); CHLORIDE 110 mmol/L (98-107); EST GLOM FILT AFRICAN AMERICAN > 60 ml/min; GLUCOSE 92 mg/dL (65-99); POTASSIUM 3.7 mmol/L (3.5-5.1); SODIUM 145 mmol/L (136-145)
[2017-04-10 08:00] VITALS: BP 105/59
[2017-04-10 12:00] VITALS: BP 109/56
[2017-04-10 16:00] VITALS: BP 103/72
== END 2017-04-10 18:00 | disposition home or self-care (01) | DRG 392 ==
LOC: ED 17:12 → 4E 19:59 → EDHOLD 19:59 → 4E 20:39
PROVIDERS: Internal Medicine; Physician Assistant
DX: R10.84 Generalized abdominal pain (principal); K90.9 Intestinal malabsorption, unspecified; R82.4 Acetonuria; D72.810 Lymphocytopenia; K91.1 Postgastric surgery syndromes; G89.29 Other chronic pain; R19.7 Diarrhea, unspecified; Z85.01 Personal history of malignant neoplasm of esophagus; Z82.49 Family history of ischemic heart disease and other diseases of the circulatory system; Z83.3 Family history of diabetes mellitus

== ENCOUNTER 2017-04-27 17:16 | Inpatient (IN) | payer OTHER ==
[~2017-04-27] VITALS: Ht 177.8 cm; Wt 76.2 kg
[~2017-04-27 17:16] MED LIST changes: +DOXEPIN HC10 MG/1 ML PO; +FIBERSOURCE HN250 M3 PEG
[2017-04-27 17:21] VITALS: BP 114/65
--- NOTE | 2017-04-27 17:42 | NUR ---
PATIENT DENIES ANY VOMITTING AT THIS TIME.
[2017-04-27 17:48] LABS: BASO % 0.5 % (0.0-1.0); EOS # 0.2 10*3/uL (0.0-0.4); EOS % 2.7 % (1.0-4.0); HEMATOCRIT 39.2 % (42.0-52.0); HEMOGLOBIN 12.6 g/dl (14.0-18.0); LYMPH # 1.3 10*3/uL (1.3-4.4); LYMPH % 22.5 % (27.0-41.0); MEAN CELL VOLUME 84.1 fl (80.0-94.0); MEAN CORPUSCULAR HGB CONC 32.1 g/dl (33.0-37.0); MONO # 0.8 10*3/uL (0.1-1.0); MONO % 13.7 % (3.0-9.0); NEUT # 3.4 10*3/uL (2.3-7.9); NEUT % 60.2 % (47.0-73.0); PLATELET COUNT AUTOMATED 213 10*3/uL (130-400); RED BLOOD COUNT 4.66 10*6/uL (4.50-5.90); RED CELL DISTRI WIDTH 13.9 % (0-14.5); WHITE BLOOD COUNT 5.6 10*3/uL (4.8-10.8)
[2017-04-27 18:03] LABS: ALBUMIN 3.6 gm/dl (3.1-4.5); ALKALINE PHOSPHATASE 91 U/L (45-117); BUN 19 mg/dl (7-24); CHLORIDE 105 mmol/L (98-107); CREATININE 0.83 mg/dL (0.70-1.30); LIPASE 64 U/L (73-393); MAGNESIUM 2.3 mg/dL (1.5-2.1); POTASSIUM 3.4 mmol/L (3.5-5.1); SGOT/AST 26 IU/L (3-35); SGPT/ALT 36 U/L (12-78); SODIUM 140 mmol/L (136-145); TOTAL PROTEIN 7.5 gm/dL (6.4-8.2)
--- NOTE | 2017-04-27 18:22 | NUR ---
PATIENT HAS A BAG NOTED FOR DRAINAGE STATES THAT HE IS DISCONNECTED FROM HIS ESOPHAGUS. PATIENT STATES HE HAS ESOPHAGEAL CANCER. STATES THAT THE DRAINAGE BAG WAS PLACED 12/22/16.
[2017-04-27 20:30] VITALS: BP 124/90
[2017-04-27] MEDS ORDERED: QUETIAPINE FUMA25 MG PO (20:35)
[2017-04-27] MEDS ORDERED: QUETIAPINE FUMA50 M1 PO (20:35)
[2017-04-27 20:41] VITALS: BP 124/90
--- NOTE | 2017-04-27 20:55 | NUR ---
Time: 2029 A 56 year old MALE admitted to under services of BEATRIZ GOODEN DO, Pt. arrived via bed from ER. Chief complaint: DIARRHEA ABDOMINAL PAIN. ANSON OWENS
[2017-04-28] VITALS: BP 92/54
--- NOTE | 2017-04-28 00:43 | NUR ---
PT C/O OF LOWER ABDOMINAL PAIN RATING 7/10, SHARP. STABBING PAIN. REPOSITIONING INEFFECTIVE FOR PAIN RELIEF. PRN MORPHINE GIVEN PER ORDER
--- NOTE | 2017-04-28 01:12 | NUR ---
PER PT PRN MORPHINE WAS EFFECTIVE FOR PAIN.
[2017-04-28 06:19] LABS: BASO % 0.3 % (0.0-1.0); EOS # 0.1 10*3/uL (0.0-0.4); EOS % 3.4 % (1.0-4.0); HEMATOCRIT 36.6 % (42.0-52.0); HEMOGLOBIN 11.4 g/dl (14.0-18.0); LYMPH # 0.7 10*3/uL (1.3-4.4); LYMPH % 18.7 % (27.0-41.0); MEAN CELL VOLUME 85.5 fl (80.0-94.0); MEAN CORPUSCULAR HGB 26.6 pg (27.0-31.0); MEAN CORPUSCULAR HGB CONC 31.1 g/dl (33.0-37.0); MEAN PLATELET VOLUME 10.6 fl (9.6-12.3); MONO # 0.4 10*3/uL (0.1-1.0); MONO % 11.1 % (3.0-9.0); NEUT # 2.5 10*3/uL (2.3-7.9); NEUT % 66.2 % (47.0-73.0); PLATELET COUNT AUTOMATED 168 10*3/uL (130-400); RED BLOOD COUNT 4.28 10*6/uL (4.50-5.90); WHITE BLOOD COUNT 3.8 10*3/uL (4.8-10.8)
[2017-04-28 06:49] LABS: ALBUMIN 2.9 gm/dl (3.1-4.5); ALKALINE PHOSPHATASE 75 U/L (45-117); BUN 13 mg/dl (7-24); CHLORIDE 111 mmol/L (98-107); CHOLESTEROL 111 mg/dL (<200); CREATININE 0.64 mg/dL (0.70-1.30); HDL CHOLESTEROL 51 mg/dl (40-60); LDL CHOLESTEROL 50 mg/dL (9-159); MAGNESIUM 2.1 mg/dL (1.5-2.1); PHOSPHOROUS 3.1 mg/dL (2.5-4.9); POTASSIUM 4.2 mmol/L (3.5-5.1); SGOT/AST 16 IU/L (3-35); SGPT/ALT 25 U/L (12-78); SODIUM 143 mmol/L (136-145); TOTAL PROTEIN 6.2 gm/dL (6.4-8.2); TRIGLYCERIDES 51 mg/dl (<150); VLDL CHOLESTEROL 10 mg/dL (6-40)
[2017-04-28 06:54] LABS: THYROID STIM HORMONE (HS) 0.667 uIU/ml (0.358-4.75)
[2017-04-28 07:02] LABS: ACT PARTIAL THROMBO TIME 29.1 SECONDS (20.8-31.5); INTERNATIONAL NORM RATIO 1.1 (2.0-3.5)
[2017-04-28 08:00] VITALS: BP 127/72
[2017-04-28 08:03] LABS: VITAMIN D, 25-HYDROXY 31.7 ng/mL (30-100)
--- NOTE | 2017-04-28 08:10 | NUR ---
PRN DILAUDID GIVEN PER PT'S REQUEST FOR C/O ABD. PAIN THAT RATES A 7 ON PAIN SCALE 1-10.
--- NOTE | 2017-04-28 09:18 | NUR ---
PT STATES SOME RELIEF OF PAIN WITH EARLIER DILAUDID. DR Teena CALDERON NOTIFIED OF PT'S CONTINUED NAUSEA EVEN WITH EARLIER PRN ZOFRAN.
--- NOTE | 2017-04-28 10:04 | NUR ---
MEDICATED PT PER PRN ORDER WITH ROXICODONE FOR PT'S C/O ABD. PAIN THAT RATES A 7 ON 1-10 PAIN SCALE AND ZOFRAN FOR PT'S C/O NAUSEA.
--- NOTE | 2017-04-28 10:30 | NUR ---
PT STATES RELIEF OF NAUSESA WITH EARLIER ZOFRAN.
--- NOTE | 2017-04-28 10:40 | NUR ---
DR MARTINEZ IN TO SEE PT EARLIER. NEW ORDERS RECEIVED. MEDICATED PT PER PRN ORDER WITH DILAUDID FOR C/O ABD. PAIN THAT RATES A 7 ON 1-10 PAIN SCALE. IV FLUIDS CHANGED TO D5LR.
--- NOTE | 2017-04-28 11:00 | NUR ---
PT STATES SOME RELIEF OF PAIN WITH EARLIER DILAUDID.
[2017-04-28 12:00] VITALS: BP 111/60
--- NOTE | 2017-04-28 12:43 | NUR ---
MED REC REVEIWED WITH PT.
--- NOTE | 2017-04-28 12:58 | NUR ---
MEDICATED PT PER PRN ORDER WITH DILAUDID FOR C/O ABD. PAIN THAT RATES A 6 ON 1-10 PAIN SCALE.
--- NOTE | 2017-04-28 13:30 | NUR ---
PT STATES SOME RELIEF OF PAIN WITH EARLIER DILAUDID. PT STATES "IT WORKS FOR ABOUT 45 MINUTES."
--- NOTE | 2017-04-28 14:15 | NUR ---
MEDICATED PT PER PRN ORDER WITH DILAUDID FOR C/O ABD. PAIN THAT RATES A 7 ON 1-10 PAIN SCALE AND PHENERGAN FOR C/O NAUSEA.
--- NOTE | 2017-04-28 14:45 | NUR ---
PT STATES SOME RELIEF OF PAIN AND NAUSEA WITH EARLIER PRN MEDS.
--- NOTE | 2017-04-28 15:12 | NUR ---
MEDICATED WITH DILAUDID IV FOR PAIN IN ESOPHAGUS OF 7/10 ON THE PAIN SCALE.
--- NOTE | 2017-04-28 15:53 | NUR ---
STATES THAT PAIN MED WORKS FOR ABOUT 45 MINUTES AND THEN RETURNS.
[2017-04-28 16:00] VITALS: BP 102/62
--- NOTE | 2017-04-28 16:23 | NUR ---
MEDICATED FOR PAIN OF 10/10 IN ESOPHAGUS.
--- NOTE | 2017-04-28 17:22 | NUR ---
MEDICATED FOR PAIN OF 5/10 ON THE PAIN SCALE.
--- NOTE | 2017-04-28 18:19 | NUR ---
EARLIER PAIN MED HELPS FOR ABOUT 50 MINUTES. MEDICATED FOR PAIN IN STOMACH OF 5/10 ON THE PAIN SCALE.
--- NOTE | 2017-04-28 19:18 | NUR ---
MEDICATED WITH DILAUDID IV FOR PAIN LAST SHOT HELPED FOR ABOUT 50 MINUTES. STOMACH PAIN IS 5/10 ON THE PAIN SCALE.
--- NOTE | 2017-04-28 19:20 | NUR ---
MEDICATED FOR NAUSEA.
[2017-04-28 20:00] VITALS: BP 98/64
--- NOTE | 2017-04-28 20:00 | NUR ---
PER PT PRN PAIN MEDICATION AND NAUSEA MEDICATION WERE EFFECTIVE
--- NOTE | 2017-04-28 20:28 | NUR ---
PT C/O OF LOWER ABD PAIN RATING 5/10. PRN DILAUDID GIVEN PER ORDER
--- NOTE | 2017-04-28 21:00 | NUR ---
PRN DILAUDID WAS EFFECTIVE FOR PAIN PER PT
--- NOTE | 2017-04-28 21:55 | NUR ---
PT C/O OF LOWER ABD PAIN RATING 4/10. PRN DILAUDID GIVEN PER ORDER
--- NOTE | 2017-04-28 23:16 | NUR ---
PT C/O OF LOWER ABD PAIN RATING 4/10. PRN DILAIDUD PER ORDER
[2017-04-29] VITALS: BP 105/63
--- NOTE | 2017-04-29 | NUR ---
PT RESTING IN BED WITH EYES CLOSED AT THIS TIME NO COMPLAINTS
--- NOTE | 2017-04-29 02:12 | NUR ---
PT C/O OF LOWER ABD PAIN MEDICATED FOR PAIN PER ORDER
--- NOTE | 2017-04-29 03:47 | NUR ---
PT MEDICATED FOR PAIN
--- NOTE | 2017-04-29 04:30 | NUR ---
PT RESTING IN BED WITH EYES CLOSED NO COMPLAINTS AT THIS TIME
--- NOTE | 2017-04-29 05:54 | NUR ---
PT C/O OF ABD PAIN RATING 5/10 AND NAUSEA. MEDICATED PER ORDER
[2017-04-29 06:44] LABS: BUN 9 mg/dl (7-24); CHLORIDE 109 mmol/L (98-107); CREATININE 0.72 mg/dL (0.70-1.30); POTASSIUM 3.8 mmol/L (3.5-5.1); SODIUM 145 mmol/L (136-145)
[2017-04-29 08:00] VITALS: BP 101/64
--- NOTE | 2017-04-29 08:03 | NUR ---
MEDICATED FOR STOMACH PAIN THAT NEVER TOTALLY GOES AWAY OF 5/10 ON THE PAIN SCALE.
--- NOTE | 2017-04-29 09:16 | NUR ---
MEDICATED FOR CONTINUED STOMACH PAIN. OF 4/10 ON PAIN SCALE.
--- NOTE | 2017-04-29 10:20 | NUR ---
MEDICATED FOR CONTINUED STOMACH PAIN OF 4/ OUT OF 10.
--- NOTE | 2017-04-29 11:27 | NUR ---
MEDICATED FOR STOMACH PAIN THAT REMAINS A FOUR ON THE PAIN SCALE.
[2017-04-29 12:00] VITALS: BP 113/79
--- NOTE | 2017-04-29 12:33 | NUR ---
MEDICATED FOR STOMACH PAIN THAT NEVER REALLY TOTALLY LEAVES OF 4 OUT OF 10 ON THE PAIN SCALE.
--- NOTE | 2017-04-29 13:32 | NUR ---
MEDICATED FOR ABDOMINAL PAIN OF 5/10 ON THE PAIN SCALE. NEVER TOTALLY RELIEVED FROM ABDOMINAL PAIN.
--- NOTE | 2017-04-29 14:34 | NUR ---
MEDICATED FOR PAIN OF 4/10 IN HIS STOMACH.
--- NOTE | 2017-04-29 15:47 | NUR ---
MEDICATED FOR ABDONMINAL PAIN OF 4 ON PAIN SCALE.
[2017-04-29 16:00] VITALS: BP 104/67
--- NOTE | 2017-04-29 16:58 | NUR ---
MEDICATED FOR NAUSEA.
--- NOTE | 2017-04-29 17:49 | NUR ---
MEDICATED FOR PAIN OF 4 ON THE PAIN SCALE. SAYS EARLIER NAUSEA MEDICINE WA EFFECTIVE.
--- NOTE | 2017-04-29 18:51 | NUR ---
MEDICATED FOR PAIN OF 4 ON THE PAIN SCALE IN HIS STOMACH EARLIER MEDICATION HELPS FOR A WHILE.
--- NOTE | 2017-04-29 19:48 | NUR ---
Medicated with dilaudid iv per prn order for complaints of abdominal pain. States pain is located in lower quads of abdomen.
[2017-04-29 20:00] VITALS: BP 112/67
--- NOTE | 2017-04-29 20:50 | NUR ---
Medicated with dilaudid iv per prn order for complaints of continued abdominal pain. Pt states that medication is effective for pain.
--- NOTE | 2017-04-29 21:48 | NUR ---
Medicated with dilaudid iv per prn order for complaints of continued abdominal pain. Pt also requesting phenergan for nausea.
--- NOTE | 2017-04-29 21:58 | NUR ---
Medicated with phenergan iv per prn order via infusion pump per policy.
--- NOTE | 2017-04-29 22:15 | NUR ---
States that dilaudid and phenergan effective for pain and nausea.
--- NOTE | 2017-04-29 22:50 | NUR ---
Medicated with dilaudid iv per prn order for complaints of abdominal pain.
--- NOTE | 2017-04-29 23:15 | NUR ---
ASSUMED CARE 0F PT AT THIS TIME. CALL LIGHT WITH IN REACH
[2017-04-30] VITALS: BP 117/71
--- NOTE | 2017-04-30 01:15 | NUR ---
MEDICATED PATIENT WITH DILUAID WILL REASSESS FOR EFFECTIVENESS OF MEDICATION
--- NOTE | 2017-04-30 02:11 | NUR ---
PT REPORTED ABDOMINAL PAIN REQUESTED PRN ROA MEDICATION, ADMISNISTERED DILAUDID IV ORDERED WILL MONITOR EFFECTS
--- NOTE | 2017-04-30 03:11 | NUR ---
PT RESTING IN BED NO FURTHER C/O PAIN PRN DILAUDID EFFECTIVE AT THIS TIME
[2017-04-30 06:19] LABS: BASO % 0.5 % (0.0-1.0); EOS # 0.2 10*3/uL (0.0-0.4); EOS % 6.2 % (1.0-4.0); HEMATOCRIT 36.2 % (42.0-52.0); HEMOGLOBIN 11.2 g/dl (14.0-18.0); LYMPH # 0.9 10*3/uL (1.3-4.4); LYMPH % 21.8 % (27.0-41.0); MEAN CORPUSCULAR HGB 26.3 pg (27.0-31.0); MEAN CORPUSCULAR HGB CONC 30.9 g/dl (33.0-37.0); MEAN PLATELET VOLUME 10.6 fl (9.6-12.3); MONO # 0.4 10*3/uL (0.1-1.0); NEUT # 2.4 10*3/uL (2.3-7.9); NEUT % 61.2 % (47.0-73.0); PLATELET COUNT AUTOMATED 163 10*3/uL (130-400); RED BLOOD COUNT 4.26 10*6/uL (4.50-5.90); RED CELL DISTRI WIDTH 13.9 % (0-14.5); WHITE BLOOD COUNT 3.9 10*3/uL (4.8-10.8)
[2017-04-30 06:41] LABS: BUN 7 mg/dl (7-24); CHLORIDE 107 mmol/L (98-107); CREATININE 0.73 mg/dL (0.70-1.30); POTASSIUM 3.3 mmol/L (3.5-5.1); SODIUM 143 mmol/L (136-145)
[2017-04-30 08:00] VITALS: BP 120/79
--- NOTE | 2017-04-30 08:00 | NUR ---
Patient resting quietly with no c/o discomfort. Respirations easy and regular. Vital signs stable. No overt distress. MAYTE DENNIS R
--- NOTE | 2017-04-30 08:36 | NUR ---
PT REQUESTED AND WAS MEDICATED WITH DILAUDID FOR C/O ABD PAIN. CALL LIGHT IN REACH. WILL MONITOR
--- NOTE | 2017-04-30 09:38 | NUR ---
Integrative Medicine Physician in to talk to patient. Patient states lives at home with . There are few steps in the home. Physician: kiersten Pharmacy: [facility] health services: none Patient's level of ADLs: INDEPENDENT Patient has working utilities: all working DME: none Follow-up physician's appointment after d/c: will be made by hospitalist nurse director upon discharge Does patient want to access PORTAL?: no Discharge plan discussed with patient, patient states he lives at home, gets around fine and doesn't need anything, case management will follow. PORTIA RIVERA
[2017-04-30] MEDS ORDERED: OXYCODONE H5 MG/5 ML PO ×2 (09:52→09:56)
[2017-04-30] MEDS ORDERED: PHENERGAN6.25 MG/1 PEG (09:56)
[2017-04-30] MEDS ORDERED: KLORVESS,K40 MEQ/30 PEG (09:56)
--- NOTE | 2017-04-30 10:40 | NUR ---
PT REQUESTED AND WAS MEDICATED WITH DILAUDID IV FOR C/O ABD PAIN. CALL LIGHT IN REACH. WILL MONITOR
--- NOTE | 2017-04-30 11:02 | NUR ---
Discharge instructions reviewed with patient/family. Patient receptive and verbalizes understanding. Follow-up care arranged. Written instructions given to patient/family. MAYTE DENNIS
== END 2017-04-30 11:02 | disposition home or self-care (01) | DRG 392 ==
LOC: ED 17:16 → 4E 19:16 → EDHOLD 19:16 → 4E 20:04
PROVIDERS: Emergency Medicine; Hospitalist; Internal Medicine; ADMIT Internal Medicine
DX: K90.9 Intestinal malabsorption, unspecified (principal); K76.0 Fatty (change of) liver, not elsewhere classified; F32.9 Major depressive disorder, single episode, unspecified; D64.9 Anemia, unspecified; E11.9 Type 2 diabetes mellitus without complications; F41.9 Anxiety disorder, unspecified; E87.6 Hypokalemia; K44.9 Diaphragmatic hernia without obstruction or gangrene; G89.29 Other chronic pain; Z96.651 Presence of right artificial knee joint; K21.9 Gastro-esophageal reflux disease without esophagitis; Z87.891 Personal history of nicotine dependence; Z85.01 Personal history of malignant neoplasm of esophagus; Z79.899 Other long term (current) drug therapy; Z90.49 Acquired absence of other specified parts of digestive tract; Z83.3 Family history of diabetes mellitus; Z82.49 Family history of ischemic heart disease and other diseases of the circulatory system; Z82.5 Family history of asthma and other chronic lower respiratory diseases; Z82.3 Family history of stroke

== ENCOUNTER 2017-05-01 11:27 | Inpatient (IN) | payer OTHER ==
[~2017-05-01] VITALS: Ht 177.8 cm; Wt 77.6 kg
[~2017-05-01 11:27] MED LIST changes: +KLORVESS,K40 MEQ/30 PEG; +PHENERGAN6.25 MG/1 PEG; +QUETIAPINE FUMA25 MG PO; +QUETIAPINE FUMA50 M1 PO
[2017-05-01 11:40] VITALS: BP 109/74
--- NOTE | 2017-05-01 11:40 | NUR ---
Time: 1139 A 56 year old MALE admitted to under services of BEATRIZ GOODEN DO, Pt. arrived via ambulatory from [place]. Chief complaint: C/O NOT TOLERATING TUBE FEEDINGS, DIARRHEA CAUSING DEHYDRATION AND ASSOCIATED PAIN. MASON KU II
[2017-05-01] MEDS ORDERED: OXYCODONE H5 MG/5 ML PEG (12:07)
--- NOTE | 2017-05-01 13:20 | NUR ---
IV started left antecubital with #22 angiocath after 2 attempts. The IV site was prepped with Chloraprep. Heparin lock attached. IV solution NS infusing at 100 cc/hr. Sterile dressing applied. Patient tolerated precedure well. Procedure performed according to [facility] policy & procedure. BERENICE URBINA
--- NOTE | 2017-05-01 13:22 | NUR ---
PT RESTING IN BED. C/O ABDOMINAL PAIN, RATES PAIN 8 ON PAIN SCALE. MEDICATED WITH MORPHINE IV PER PRN ORDER, SEE EMAR. ALSO C/O NAUSEA, MEDICATED WITH PHENERGAN IM PER PRN ORDER, SEE EMAR. CALL LIGHT IN REACH.
--- NOTE | 2017-05-01 14:00 | NUR ---
STATES PAIN MEDS DIDN'T HELP MUCH. CALLED DR. PIZARRO SHE WILL ASK DR. MARTINEZ.
[2017-05-01 14:16] LABS: BASO % 0.2 % (0.0-1.0); EOS # 0.2 10*3/uL (0.0-0.4); EOS % 3.7 % (1.0-4.0); HEMATOCRIT 34.9 % (42.0-52.0); HEMOGLOBIN 11.4 g/dl (14.0-18.0); LYMPH # 0.9 10*3/uL (1.3-4.4); LYMPH % 21.1 % (27.0-41.0); MEAN CELL VOLUME 83.1 fl (80.0-94.0); MEAN CORPUSCULAR HGB 27.1 pg (27.0-31.0); MEAN CORPUSCULAR HGB CONC 32.7 g/dl (33.0-37.0); MEAN PLATELET VOLUME 10.1 fl (9.6-12.3); MONO # 0.4 10*3/uL (0.1-1.0); MONO % 8.8 % (3.0-9.0); NEUT # 2.7 10*3/uL (2.3-7.9); NEUT % 65.7 % (47.0-73.0); PLATELET COUNT AUTOMATED 170 10*3/uL (130-400); RED CELL DISTRI WIDTH 13.7 % (0-14.5); WHITE BLOOD COUNT 4.1 10*3/uL (4.8-10.8)
--- NOTE | 2017-05-01 14:25 | NUR ---
MEDICATED WITH DILAUDID IV PER PRN ORDER, SEE EMAR. FOR C/O ABDOMINAL PAIN, RATES PAIN 7 ON PAIN SCALE. CALL LIGHT IN REACH. ABD TENDER TO TOUCH.
[2017-05-01 14:47] LABS: ALBUMIN 3.2 gm/dl (3.1-4.5); ALKALINE PHOSPHATASE 70 U/L (45-117); BUN 11 mg/dl (7-24); CHLORIDE 109 mmol/L (98-107); CREATININE 0.72 mg/dL (0.70-1.30); MAGNESIUM 1.9 mg/dL (1.5-2.1); PHOSPHOROUS 1.9 mg/dL (2.5-4.9); SGOT/AST 14 IU/L (3-35); SGPT/ALT 20 U/L (12-78); SODIUM 142 mmol/L (136-145); TOTAL PROTEIN 6.3 gm/dL (6.4-8.2)
[2017-05-01 16:00] VITALS: BP 124/83
--- NOTE | 2017-05-01 17:08 | NUR ---
DR PIZARRO CALLED RE: PT C/O ABDOMINAL PAIN 05/29. ORDERS TO FOLLOW.
--- NOTE | 2017-05-01 18:50 | NUR ---
PT REQUESTED AND WAS MEDICATED WITH DILAUDID FOR C/O ABDOMINAL PAIN. CALL LIGHT IN REACH. WILL MONITOR
[2017-05-01 20:00] VITALS: BP 121/75
[2017-05-02] VITALS: BP 109/69
--- NOTE | 2017-05-02 01:50 | NUR ---
PT MEDICATED WITH PRN DILAUDID IVP ORDERED. PT STATES THAT PAIN MED IS EFFECTIVE FOR A SHORT DURATION. ADVISED PT THAT IF PAIN MED IS INEFFECTIVE, THIS NURSE CAN CALL DR CONTINUOUS VULCANIZING MACHINE OPERATOR FOR DIFFERENT DRUG. PT DENIES NEED FOR DIFFERENT MEDICATION.
--- NOTE | 2017-05-02 02:35 | NUR ---
24 HR chart check completed.
--- NOTE | 2017-05-02 06:00 | NUR ---
PT STATES THAT PRN PHENERGAN WAS EFFECTIVE FOR NAUSEA AND PRN DILAUDID EFFECTIVE FOR PAIN RELIEF.
[2017-05-02 07:04] LABS: ALBUMIN 2.8 gm/dl (3.1-4.5); ALKALINE PHOSPHATASE 64 U/L (45-117); BUN 9 mg/dl (7-24); CHLORIDE 109 mmol/L (98-107); CREATININE 0.69 mg/dL (0.70-1.30); MAGNESIUM 2.1 mg/dL (1.5-2.1); PHOSPHOROUS 4.4 mg/dL (2.5-4.9); POTASSIUM 3.8 mmol/L (3.5-5.1); SGOT/AST 15 IU/L (3-35); SGPT/ALT 20 U/L (12-78); SODIUM 142 mmol/L (136-145); TOTAL PROTEIN 5.7 gm/dL (6.4-8.2)
[2017-05-02 08:00] VITALS: BP 118/66
--- NOTE | 2017-05-02 08:22 | NUR ---
MEDICATED WITH DILAUDED FOR COMPLAINTS OF ABDOMINAL PAIN/CRAMPING HE RATES AN 8.
--- NOTE | 2017-05-02 09:34 | NUR ---
MEDICATED WITH DILAUDED FOR ABD PAIN HE RATES A 7.
--- NOTE | 2017-05-02 09:34 | NUR ---
Heating Worker in to talk to patient. Patient states lives at home with . There are few steps in the home. Physician: kiersten Pharmacy: [facility] health services: none Patient's level of ADLs: INDEPENDENT Patient has working utilities: all working DME: [employer] Follow-up physician's appointment after d/c: will be made by hospitalist nurse director upon discharge Does patient want to access PORTAL?: no Discharge plan discussed with patient, patient states he lives at home with , is independent in adls and ambulation, patient states he will be going back home and denies any home needs, he also states he will be having surgery on Sunday, case management will follow. PORTIA RIVERA
--- NOTE | 2017-05-02 11:53 | NUR ---
MEDICATED WITH DILAUDED FOR ABD PAIN HE RATES A 4.
[2017-05-02 12:00] VITALS: BP 106/64
--- NOTE | 2017-05-02 13:04 | NUR ---
Medicated with dilaudid iv per prn order for complaints of abdominal pain.
--- NOTE | 2017-05-02 14:35 | NUR ---
MEDICATED WITH DILAUDED FOR ABD PAIN HE RATES A 5.
--- NOTE | 2017-05-02 15:53 | NUR ---
MEDICATED WITH DILAUDED FOR ABD PAIN HE RATES A 4 ON THE PAIN SCALE.
[2017-05-02 16:00] VITALS: BP 110/66
--- NOTE | 2017-05-02 18:45 | NUR ---
PATIENT MEDICATED FOR PAIN HE RATES A 5 ON THE PAIN SCALE.
--- NOTE | 2017-05-02 19:45 | NUR ---
PATIENT IS AWAKE, ALERT AND ORIENTED X3 . PLEASANT AND COOPERATIVE. LUNGS ARE CLEAR AND DIMINISHED THROUGHOUT LUNGFIELDS. ROOM AIR. OSTOMY BAG TO ESOPHAGEAL AREA, WHITE PHLEM IN BAG. ABDOMEN IS SOFT AND NON-TENDER UPON PALPATION, BOWEL SOUNDS ARE HYPOACTIV E X 4 QUADS, UPPER LEFT QUADRANT PEG TUBE ASYMPTOMATIC. PER PATIETN REX HAS A CHRONIC DEEP TISSUES ACHE IN HIS ABDOMEN, REQUESTED DILALUDID AT THIS TIME. PRN DILAUDID GIVEN. CALL LIGHT IS IN REACH.
[2017-05-02 20:00] VITALS: BP 96/55
--- NOTE | 2017-05-02 20:54 | NUR ---
24 HOUR CHART CHECK COMPLETED AT THIS TIME.
--- NOTE | 2017-05-02 20:59 | NUR ---
PER PATIENT PRIOR DOSE OF DILAUDID WAS MINIMALLY EFECTIVE. PATIETN REQUESTING DILAUDID AGAIN AT THIS TIME. PRN DILAUDID GIVEN PER ORDERS. CALL LIGHT IS IN REACH.
--- NOTE | 2017-05-02 22:45 | NUR ---
PATIENT REQUESTED DILAUDID AT THIS TIME STATES THAT HE IS ONLY GETTING SHORT TERM RELIEF FROM THIS MEDICATION. PRN DILAUDID GIVEN AT THIS TIME. ALSO DR. SANDS MADE AWARE THAT PER PATIENT THIS MEDICATION IS NOT BEING EFFECTIVE THROUGHOUT THE ENTIRE HOUR. DR. SANDS PUT IN NEW ORDERS FOR PRN OXY FOR BREAK THROUGH PAIN AND DILAUDID EVERY THREE HOURS.
[2017-05-03] VITALS: BP 103/61
--- NOTE | 2017-05-03 00:20 | NUR ---
PATIENT REQUESTING MORE DILAUDID AT THIS TIME. INFORMED THIS PATIENT THAT THE ORDERS HAD BEEN CHANGED AND THAT HE COULD HAVE OXY VIA HI PEG TUBE FOR PAIN AT THIS TIME BUT THAT THE OXY WAS NOT ABLE TO BE GIVEN FOR ANOTHER HOUR DUE TO THE ORDER BEING Q3 HOURS NOW. PATIENT STATES THAT HE DOES NOT WANT THE OXY AND WILL REQUEST DILAUDID AGAIN AT AT A LATER TIME. CALL LIGHT IS IN REACH.
--- NOTE | 2017-05-03 02:01 | NUR ---
PATIENT REQUESTED DILAUDID AT THIS TIME FOR C/O PAIN IN HIS ABDOMEN. RATES THIS PAIN 7-10 ON PAIN SCALE. DESCRIBES PAIN ACHY AND CHRONIC. DILAUDID GIVEN PER ORDERS. ALSO PATIETN WAS REMINDED OF PAIN MEDICATION FOR BREAKTHROUGH PAIN. PATIENT VERBALIZED UNDERSTANDING. CALL LIGHT IS IN REACH.
--- NOTE | 2017-05-03 03:00 | NUR ---
PATIENT RESTING IN BED WITH EYES CLOSED BILATERALLY. RESPIRATIONS ARE EASY AND REGULAR. NO S/S OF PAIN OR DISCOMFORT. DILAUDID EFFECTIVE AT THIS TIME. CALL LIGHT IS IN REACH.
--- NOTE | 2017-05-03 05:01 | NUR ---
PATIENT REQUESTED DILAUDID AT THIS TIME FOR C/O PAIN IN HIS ABDOMEN. RATES THIS PAIN 8/10 ON PAIN SCALE. DESCRIBES PAIN ACHY AND CHRONIC. PRN DILAUDID GIVEN AT THIS TIME. CALL LIGHT IS IN REACH.
--- NOTE | 2017-05-03 05:30 | NUR ---
PATIENT SITTING UP IN RECLINER , DENIES ANY PAIN AT THE PRESENT TIME. PATIENT STATES THAT HE IS WORRIED ABOUT NOT BEING DISCHARGED ON TIME THIS MORNING. INFORMED PATIENT THAT I WOULD REMIND THE PHYSICIAN AND THAT I DID READ IN HIS NOTES THAT THE PLAN WAS FOR HIM TO BE DISCHARGED THIS MORNING. A CALL WAS PLACED TO DR. SANDS AT THIS TIME TO INFORM HIM OF THIS PATIENTS CONCERN.
[2017-05-03 06:59] LABS: BASO % 0.2 % (0.0-1.0); EOS # 0.2 10*3/uL (0.0-0.4); EOS % 4.8 % (1.0-4.0); HEMATOCRIT 37.8 % (42.0-52.0); HEMOGLOBIN 12.3 g/dl (14.0-18.0); LYMPH # 0.6 10*3/uL (1.3-4.4); LYMPH % 13.9 % (27.0-41.0); MEAN CELL VOLUME 83.8 fl (80.0-94.0); MEAN CORPUSCULAR HGB 27.3 pg (27.0-31.0); MEAN CORPUSCULAR HGB CONC 32.5 g/dl (33.0-37.0); MEAN PLATELET VOLUME 10.8 fl (9.6-12.3); MONO # 0.3 10*3/uL (0.1-1.0); MONO % 7.5 % (3.0-9.0); NEUT # 3.2 10*3/uL (2.3-7.9); NEUT % 73.6 % (47.0-73.0); PLATELET COUNT AUTOMATED 185 10*3/uL (130-400); RED BLOOD COUNT 4.51 10*6/uL (4.50-5.90); WHITE BLOOD COUNT 4.4 10*3/uL (4.8-10.8)
[2017-05-03 07:37] LABS: ALBUMIN 3.3 gm/dl (3.1-4.5); ALKALINE PHOSPHATASE 73 U/L (45-117); BUN 10 mg/dl (7-24); CHLORIDE 106 mmol/L (98-107); CREATININE 0.73 mg/dL (0.70-1.30); MAGNESIUM 2.1 mg/dL (1.5-2.1); PHOSPHOROUS 3.3 mg/dL (2.5-4.9); POTASSIUM 4.1 mmol/L (3.5-5.1); SGOT/AST 14 IU/L (3-35); SGPT/ALT 21 U/L (12-78); SODIUM 141 mmol/L (136-145); TOTAL PROTEIN 6.8 gm/dL (6.4-8.2)
[2017-05-03 08:00] VITALS: BP 115/71
--- NOTE | 2017-05-03 08:44 | NUR ---
DR BARRETO MADE AWARE THAT PT IS NEEDING TO BE DISCHARGED RYAN THIS AM DUE TO APPOINTMENT IN [facility] FOR PRE OP TESTING TODAY AT 1PM.
--- NOTE | 2017-05-03 09:05 | NUR ---
Patient signed out AMA. Patient encouraged to stay and advised of possible consequences of premature discharge. Physician DR BARRETO and department supervisor ZACK TEIXEIRA notified. Patient instructed what to do regarding care post-departure from the hospital; emergency phone numbers provided. Patent was accompanied by . RORY BUSH
== END 2017-05-03 09:05 | disposition left against medical advice (07) | DRG 392 ==
LOC: 5E 11:27
PROVIDERS: Internal Medicine; Student in an Organized Health Care Education/Training Program; ADMIT Internal Medicine
DX: R10.30 Lower abdominal pain, unspecified (principal); E44.0 Moderate protein-calorie malnutrition; C15.9 Malignant neoplasm of esophagus, unspecified; E87.8 Other disorders of electrolyte and fluid balance, not elsewhere classified; E83.39 Other disorders of phosphorus metabolism; K91.1 Postgastric surgery syndromes; D72.819 Decreased white blood cell count, unspecified; E87.6 Hypokalemia; K21.9 Gastro-esophageal reflux disease without esophagitis; R19.7 Diarrhea, unspecified; F32.9 Major depressive disorder, single episode, unspecified; F41.9 Anxiety disorder, unspecified; E86.0 Dehydration; Z96.659 Presence of unspecified artificial knee joint; Z53.21 Procedure and treatment not carried out due to patient leaving prior to being seen by health care provider; Z87.891 Personal history of nicotine dependence; Z83.3 Family history of diabetes mellitus; Z68.24 Body mass index [BMI] 24.0-24.9, adult; Z82.49 Family history of ischemic heart disease and other diseases of the circulatory system; Z83.6 Family history of other diseases of the respiratory system; Z90.49 Acquired absence of other specified parts of digestive tract; Z79.899 Other long term (current) drug therapy

== ENCOUNTER 2017-07-18 12:03 | Inpatient (IN) | payer OTHER ==
[~2017-07-18] VITALS: Ht 177.8 cm; Wt 82.1 kg
[~2017-07-18 12:03] MED LIST changes: +OXYCODONE H5 MG/5 ML PEG
[2017-07-18 12:09] VITALS: BP 138/88
[2017-07-18 13:37] LABS: BASO % 0.4 % (0.0-1.0); EOS % 0.2 % (1.0-4.0); HEMATOCRIT 32.3 % (42.0-52.0); HEMOGLOBIN 9.5 g/dl (14.0-18.0); LYMPH # 0.7 10*3/uL (1.3-4.4); LYMPH % 8.3 % (27.0-41.0); MEAN CELL VOLUME 74.3 fl (80.0-94.0); MEAN CORPUSCULAR HGB 21.8 pg (27.0-31.0); MEAN CORPUSCULAR HGB CONC 29.4 g/dl (33.0-37.0); MEAN PLATELET VOLUME 9.4 fl (9.6-12.3); MONO # 0.5 10*3/uL (0.1-1.0); MONO % 5.4 % (3.0-9.0); NEUT # 7.1 10*3/uL (2.3-7.9); PLATELET COUNT AUTOMATED 289 10*3/uL (130-400); RED BLOOD COUNT 4.35 10*6/uL (4.50-5.90); RED CELL DISTRI WIDTH 15.8 % (0-14.5); WHITE BLOOD COUNT 8.4 10*3/uL (4.8-10.8)
[2017-07-18 13:55] VITALS: BP 140/88
[2017-07-18 13:55] LABS: ALBUMIN 3.7 gm/dl (3.1-4.5); ALKALINE PHOSPHATASE 105 U/L (45-117); BUN 9 mg/dl (7-24); CHLORIDE 107 mmol/L (98-107); CREATININE 0.94 mg/dL (0.70-1.30); LIPASE 88 U/L (73-393); POTASSIUM 3.3 mmol/L (3.5-5.1); SGOT/AST 22 IU/L (3-35); SGPT/ALT 23 U/L (12-78); SODIUM 142 mmol/L (136-145); TOTAL PROTEIN 8.1 gm/dL (6.4-8.2)
[2017-07-18 13:56] LABS: TROPONIN I < 0.015 ng/ml (<0.045)
--- NOTE | 2017-07-18 14:08 | NUR ---
PATIENT STATES PAIN IS AN 8/10 AT THIS TIME. PATIENT HAS BEEN MEDICATED.
[2017-07-18 14:15] VITALS: BP 128/80
[2017-07-18 14:25] LABS: BILIRUBIN NEGATIVE (NEGATIVE); BLOOD NEGATIVE (NEGATIVE); CLARITY CLEAR (CLEAR); COLOR YELLOW (YELLOW); GLUCOSE NEGATIVE (NEGATIVE); KETONE NEGATIVE (NEGATIVE); LEUKO ESTERASE NEGATIVE (NEGATIVE); NITRITE NEGATIVE (NEGATIVE); UROBILINOGEN 0.2 E.U./dl (0.2-1.0)
--- NOTE | 2017-07-18 14:33 | NUR ---
PATIENT STATES PAIN IS A 6/[address] MARTINEZ NOTIFIED.
[2017-07-18 14:38] LABS: BACTERIA TRACE
[2017-07-18 14:39] LABS: EPITHELIAL CELLS 0-2; RBC 0-2 rbc/hpf (0-2)
--- NOTE | 2017-07-18 15:29 | NUR ---
PATIENT STATES THAT THE DILAUDID HAS HELPED HIM WITH THE PAIN.
--- NOTE | 2017-07-18 16:51 | NUR ---
PATIENT HAS LOW BACK PAIN. PATIENT REQUESTING PAIN MEDICATION AT THIS TIME AGAIN. DR CALDERON NOTIFIED.
--- NOTE | 2017-07-18 18:39 | NUR ---
REPORT GIVEN TO CRISTAL HOBSON AT THIS TIME.
--- NOTE | 2017-07-18 18:42 | NUR ---
MEAL TRAY HAS BEEN ORDERED FOR PATIENT AT THIS TIME.
[2017-07-18 19:40] VITALS: BP 139/71
--- NOTE | 2017-07-18 19:40 | NUR ---
Time: 1939 A 56 year old MALE admitted to under services of VALERIE PEREZ DO. Pt. arrived via bed from ER. Chief complaint: INTRACTABLE PAIN, ACUTE COLITIS, VOMITING. DEBBI WOODARD
--- NOTE | 2017-07-18 20:00 | NUR ---
PATIENT ARRIVE ON FLOOR AT 1940 VIA CART FROM ER. PATIENT AWAKE AND ALERT. PATIENT WITH PICCLINE IN UPPER RIGHT ARM. PICCLINE FLUSHES EASILY.
--- NOTE | 2017-07-18 20:30 | NUR ---
STOOL COLLECTED AND SENT TO LAB FOR TESTING.
--- NOTE | 2017-07-18 20:57 | NUR ---
PATIENT REQUESTED MORPHINE FOR LOWER BACK PAIN, 04/29. PATIENT WALKING AROUND IN ROOM. MEDICATION GIVEN FOR PAIN AT 2056.
[2017-07-18] MEDS ORDERED: DOXEPIN50 MG PO (21:46)
[2017-07-18] MEDS ORDERED: ZYRTEC ALLERGY10 MG PO (21:49)
[2017-07-18] MEDS ORDERED: PROTONIX20 MG PO (21:51)
[2017-07-18] MEDS ORDERED: NEURONTIN300 MG PO (21:53)
[2017-07-18] MEDS ORDERED: QUETIAPINE FUMA25 MG PO (21:54)
[2017-07-18] MEDS ORDERED: OXYCODONE HCL10 M1 PO (21:56)
[2017-07-18] MEDS ORDERED: MORPHINE SULFAT3011 PO (22:00)
--- NOTE | 2017-07-18 22:00 | NUR ---
2200 PATIENT STATES THAT MEDICATION WITH VERY LITTLE EFFECT, PAIN CONTINUES AT 6/10.
[2017-07-19] VITALS: BP 160/83
--- NOTE | 2017-07-19 00:35 | NUR ---
0035 PATIENT LYING IN BED, COMPLAINS OF PAIN IN LOWER BACK. PAIN MEDICATION REQUESTED FOR PAIN 03/29, PATIENT GIVEN MS CONTIN AT 0035 PER PRN ORDER.
--- NOTE | 2017-07-19 00:50 | NUR ---
PATIENT STATED THAT MS CONTIN INEFFECTIVE, PAIN CONTINUES AT 8/10 AND PAIN MEDICATION REQUESTED, OXY ER GIVEN PER ORDER AT 0050.
--- NOTE | 2017-07-19 01:20 | NUR ---
PATIENT STATES THAT PAIN MEDICATION "DOES NOT WORK, PAIN CONTINUES AT 6/10. PATIENT WITH PICCLINE IN UPPER RIGHT ARM. PATIENT TALKED TO DR. Rustam PIZARRO, NEW ORDER OBTAINED FOR DILAUDID. PATIENT COMPLAINS THAT PAIN WAS 9/10, DILAUDID GIVEN AT 0238. PATIENT WAS WALKING AROUND IN CIRCLES IN ROOM, PATIENT RESTLESS.
--- NOTE | 2017-07-19 03:25 | NUR ---
DILAUDID APPEARS TO BE EFFECTIVE, PATIENT ASLEEP.
--- NOTE | 2017-07-19 03:33 | NUR ---
DR Rustam PIZARRO WAS NOTIFIED AT 2200 THAT PATIENT WAS DISSATISFIED WITH MEDICATION AND SHE CAME TO FLOOR TO TALK WITH HIM. ORDER WERE CHANGED AND SOME CLARIFIED.
[2017-07-19 04:58] LABS: BASO % 0.4 % (0.0-1.0); EOS # 0.1 10*3/uL (0.0-0.4); EOS % 2.1 % (1.0-4.0); HEMATOCRIT 26.7 % (42.0-52.0); HEMOGLOBIN 7.8 g/dl (14.0-18.0); LYMPH # 0.8 10*3/uL (1.3-4.4); LYMPH % 14.4 % (27.0-41.0); MEAN CELL VOLUME 75.2 fl (80.0-94.0); MEAN CORPUSCULAR HGB CONC 29.2 g/dl (33.0-37.0); MEAN PLATELET VOLUME 9.2 fl (9.6-12.3); MONO # 0.6 10*3/uL (0.1-1.0); MONO % 10.4 % (3.0-9.0); NEUT # 4.1 10*3/uL (2.3-7.9); NEUT % 72.5 % (47.0-73.0); RED BLOOD COUNT 3.55 10*6/uL (4.50-5.90); RED CELL DISTRI WIDTH 15.8 % (0-14.5); WHITE BLOOD COUNT 5.7 10*3/uL (4.8-10.8)
[2017-07-19 05:04] LABS: PLATELET COUNT AUTOMATED 202 10*3/uL (130-400)
[2017-07-19 05:33] LABS: BUN 8 mg/dl (7-24); CHLORIDE 111 mmol/L (98-107); CHOLESTEROL 125 mg/dL (<200); FREE T4 0.68 ng/dl (0.76-1.46); HDL CHOLESTEROL 51 mg/dl (40-60); LDL CHOLESTEROL 61 mg/dL (9-159); PHOSPHOROUS 3.7 mg/dL (2.5-4.9); POTASSIUM 3.7 mmol/L (3.5-5.1); SODIUM 145 mmol/L (136-145); TRIGLYCERIDES 66 mg/dl (<150); VLDL CHOLESTEROL 13 mg/dL (6-40)
--- NOTE | 2017-07-19 06:41 | NUR ---
MEDICATED WITH PRN DILUADID FOR 02/26 PAIN
[2017-07-19 07:59] LABS: VITAMIN D, 25-HYDROXY 20.3 ng/mL (30-100)
[2017-07-19 08:00] VITALS: BP 120/84; BP 120/85
--- NOTE | 2017-07-19 08:36 | NUR ---
MEDICATED PATIENT FOR C/O BACK PAIN THAT HE RATES A 7 ON A PAIN SCALE OF 10 PORTIA OSORIO
--- NOTE | 2017-07-19 08:42 | NUR ---
PATIENT RESTING IN BED HAS CO OF N/V. ASKING FOR ZOFRAN. STUDENT NURSE WILL ADMINISTER ZOFRAN. WILL REASSESS EFFECTIVENESS OF MEDICATION
--- NOTE | 2017-07-19 08:54 | NUR ---
C/O NAUSEA AFTER FINISHING HIS BREAKFAST, DILAUDID ALREADY HELPED TAKE HIS BACK PAIN DOWN TO A 4 MAYI VERA
--- NOTE | 2017-07-19 09:00 | NUR ---
Chiropractor Sole Practitioner in to talk to patient. Patient states lives at home with . There are no steps in the home. Physician: kiersten Pharmacy: [facility] health services: none Patient's level of ADLs: INDEPENDENT Patient has working utilities: all working DME: none Follow-up physician's appointment after d/c: will be made by hospitalist nurse director upon discharge Does patient want to access PORTAL?: no Discharge plan discussed with patient, patient lives at home with , states he is independent in adls and ambulation, patient states he will be going back home when able and denies any home needs. PORTIA RIVERA
--- NOTE | 2017-07-19 10:09 | NUR ---
ZOFRAN WAS EFFECTIVE PATIENT STATES NAUSEA HAS SUBSIDED AT THIS TIME. WILL CONTINUE TO ASSESS PATIENT SEE SHIFT ASSESSMENT
--- NOTE | 2017-07-19 10:12 | NUR ---
NAUSEA IMPROVED WITH ZOFRAN, C/O PAIN IN BACK THAT HE RATES A 6 ON A PAIN SCALE OF 10, MEDICATED FOR PAIN PER AILEEN OSORIO
--- NOTE | 2017-07-19 10:45 | NUR ---
DOCTOR IN TO VISIT, PAIN SOMEWHAT IMRPOVED AT PRESENT [facility]
[2017-07-19 12:00] VITALS: BP 112/74
--- NOTE | 2017-07-19 13:34 | NUR ---
MEDICATED PT FOR C/O BACK PAIN THAT HE RATES A 6 ON A PAIN SCALE OF 10 MAYI OSORIO
--- NOTE | 2017-07-19 13:40 | NUR ---
SUSAN QUINTERO [id number] Please refer to the physician's history and physical for past medical history, comorbid conditions, and allergies. Diagnosis: INTRACTABLE PAIN AC COLITIS Rosalino Score: 22,LOW OR NO RISK WOUND DESCRIPTIONS: Location of the wound: mid chest Type of wound: surgical Thickness: Partial Size: 3.3cm x 0.6cm x 0.2cm Tunneling: none Undermining: none Sinus Tract: none Presence of Exudate: Serous Amount: Scant Color: [place] Odor: None Periwound Skin Appearance: Scar Wound edges: approximated Pain (associated with wound): patient denies at time of assessment How does patient state this happened? patient states he had surgery May 2017. He states he follows an Dr. Olsen at [facility] for this wound. Surface the patient is resting on: Isoflex SKIN PREVENTION RECOMMENDATION: 1. Pressure redistribution support surface as appropriate 2. Elevate heels 3. Remove boots/TEDS every shift and reapply 4. Head of bed 30 degrees as tolerated 5. Assess nutrition and hydration 6. Manage moisture 7. Avoid the use of containment devices while in bed 8. Use absorptive products on surfaces limit layers of linens on bed 9. Turn and reposition every 1-2 hours in bed and every 1 hour in chair as tolerated 10. Weight shifts every 15 minutes while up in chair 11. Offloading with pillows or device to keep heels elevated off bed 12. Monitor skin at least every shift 13. Inspect under medical devices twice a day WOUND TREATMENT RECOMMENDATIONS: Patient states Dr. Olsen advised him to clean wound with NSS and cover with DSD daily.
[2017-07-19 16:00] VITALS: BP 116/67; BP 120/76
[2017-07-19 20:00] VITALS: BP 135/79
[2017-07-20] VITALS: BP 122/73
--- NOTE | 2017-07-20 00:13 | NUR ---
PATIENT REQUESTED ROXICODONE FOR PAIN IN LOWER BACK, /, GIVEN PER PRN ORDER. PATIENT UP WALKING IN ROOM.
--- NOTE | 2017-07-20 01:00 | NUR ---
AT 0100 PAIN MEDICATION APPEARS TO HAVE BEEN EFFECTIVE, RESIDENT SLEEPING.
[2017-07-20 06:23] LABS: BASO % 0.4 % (0.0-1.0); EOS # 0.3 10*3/uL (0.0-0.4); EOS % 5.7 % (1.0-4.0); HEMATOCRIT 29.6 % (42.0-52.0); HEMOGLOBIN 8.4 g/dl (14.0-18.0); LYMPH # 0.8 10*3/uL (1.3-4.4); LYMPH % 15.6 % (27.0-41.0); MEAN CELL VOLUME 75.7 fl (80.0-94.0); MEAN CORPUSCULAR HGB 21.5 pg (27.0-31.0); MEAN CORPUSCULAR HGB CONC 28.4 g/dl (33.0-37.0); MEAN PLATELET VOLUME 9.7 fl (9.6-12.3); MONO # 0.5 10*3/uL (0.1-1.0); MONO % 8.9 % (3.0-9.0); NEUT # 3.5 10*3/uL (2.3-7.9); PLATELET COUNT AUTOMATED 212 10*3/uL (130-400); RED BLOOD COUNT 3.91 10*6/uL (4.50-5.90); RED CELL DISTRI WIDTH 15.9 % (0-14.5); WHITE BLOOD COUNT 5.1 10*3/uL (4.8-10.8)
[2017-07-20 06:48] LABS: BUN 11 mg/dl (7-24); CHLORIDE 108 mmol/L (98-107); CREATININE 0.98 mg/dL (0.70-1.30); IRON 13 ug/dL (65-175); POTASSIUM 3.6 mmol/L (3.5-5.1); SODIUM 142 mmol/L (136-145); TOTAL IRON BINDING CAPACITY 487 ug/dl (250-450)
--- NOTE | 2017-07-20 07:04 | NUR ---
PAATIENT REQUESTED ZOFRAN D/T UPSET STOMACH AND DIARRHEA. ZOFRAN GIVEN PER PRN ORDER.
[2017-07-20 08:00] VITALS: BP 124/87
--- NOTE | 2017-07-20 08:23 | NUR ---
PT STATES ABDOMINAL AND BACK PAIN 02/26. PRN ROXYCODONE GIVEN. SEE OCT. WILL MONITOR FOR EFFECTIVENESS.
--- NOTE | 2017-07-20 08:42 | NUR ---
Shift chart check completed.
--- NOTE | 2017-07-20 09:35 | NUR ---
case management visits with patient, patient states he will be going home when able, discussed with him VNA and he refused any at this time, stated he has been giving himself iv antibiotics at home, asked what infusion company supplied the antibiotics and he didn't know, case management will follow
--- NOTE | 2017-07-20 10:17 | NUR ---
PRN IMODIUM GIVEN PER PATIENT REQUEST FOR C/O DIARRHEA. WILL MONITOR PATIENT, DENIES ANY FURTHER NEEDS AT THIS TIME. SITTING UP IN CHAIR AT BEDISDE. CALL LIGHT IN REACH.
--- NOTE | 2017-07-20 11:46 | NUR ---
RIGHT UPPER ARM PICC LINE DRESSING CHANGED, SITE WNL. NO REDNESS NOTED. BOTH LINES FLUSHED WITHOUT PROBLEMS, HEPARIN INSTILLED. PICC AT 4CM, NO EDEMA/SWELLING NOTED TO UPPER ARM
[2017-07-20 12:00] VITALS: BP 122/78
--- NOTE | 2017-07-20 12:27 | NUR ---
PER PATIENT, DR. BOSWELL HAD SAID THAT HE WOULD BE DISCHARGED LATER TODAY, PT DOES NOT WANT WOUND ON CHEST DRESSING CHANGED OR PICTURES TAKEN PRIOR TO DISHCARGE.
[2017-07-20] MEDS ORDERED: VITAMIN D31000 UNI1 PO (13:31)
[2017-07-20] MEDS ORDERED: OXYCODONE HCL20 M1 PO (13:31)
[2017-07-20] MEDS ORDERED: ZOSYN 4.54.5 GM/100 IV (13:31)
[2017-07-20] MEDS ORDERED: FEROSUL300 MG/6.8 PO (13:31)
--- NOTE | 2017-07-20 14:16 | NUR ---
Discharge instructions reviewed with patient. Patient receptive and verbalizes understanding. Follow-up care understood. Written instructions given to patient. rx given for oxycodone, vit d, ferrous sulfate and patient understands to get filled. understands medicaions and to continue home health and iv antibiotics as directed. pt d/c home with picc in right upper arm. pt deny for chest wound to be photographed or for dressing to be changed prior to discharge. pt car is parked outside and declined wheelchair to car. KATHY PATEL
== END 2017-07-20 14:16 | disposition home or self-care (01) | DRG 392 ==
LOC: ED 12:03 → 4E 17:38 → EDHOLD 17:38 → 4E 18:16
PROVIDERS: Internal Medicine; Student in an Organized Health Care Education/Training Program; ADMIT Internal Medicine
DX: K52.9 Noninfective gastroenteritis and colitis, unspecified (principal); E44.0 Moderate protein-calorie malnutrition; E87.8 Other disorders of electrolyte and fluid balance, not elsewhere classified; K91.1 Postgastric surgery syndromes; E87.6 Hypokalemia; K21.9 Gastro-esophageal reflux disease without esophagitis; R73.9 Hyperglycemia, unspecified; M54.5 Low back pain; F32.9 Major depressive disorder, single episode, unspecified; E55.9 Vitamin D deficiency, unspecified; D50.8 Other iron deficiency anemias; Z82.49 Family history of ischemic heart disease and other diseases of the circulatory system; Z83.3 Family history of diabetes mellitus; Z82.5 Family history of asthma and other chronic lower respiratory diseases; Z87.891 Personal history of nicotine dependence; Z90.49 Acquired absence of other specified parts of digestive tract; Z79.899 Other long term (current) drug therapy; Z68.25 Body mass index [BMI] 25.0-25.9, adult

== ENCOUNTER 2017-07-29 12:47 | Emergency (ER) | payer OTHER ==
[~2017-07-29] VITALS: Ht 177.8 cm; Wt 80.7 kg
[~2017-07-29 12:47] MED LIST changes: +DOXEPIN50 MG PO; +FEROSUL300 MG/6.8 PO; +MORPHINE SULFAT3011 PO; +NEURONTIN300 MG PO; +OXYCODONE HCL10 M1 PO; +OXYCODONE HCL20 M1 PO; +PROTONIX20 MG PO; +VITAMIN D31000 UNI1 PO; +ZOSYN 4.54.5 GM/100 IV; +ZYRTEC ALLERGY10 MG PO
[2017-07-29 13:20] LABS: BASO % 0.5 % (0.0-1.0); EOS # 0.2 10*3/uL (0.0-0.4); EOS % 5.1 % (1.0-4.0); HEMATOCRIT 31.5 % (42.0-52.0); HEMOGLOBIN 9.4 g/dl (14.0-18.0); LYMPH # 0.5 10*3/uL (1.3-4.4); LYMPH % 12.6 % (27.0-41.0); MEAN CELL VOLUME 73.8 fl (80.0-94.0); MEAN CORPUSCULAR HGB CONC 29.8 g/dl (33.0-37.0); MEAN PLATELET VOLUME 8.8 fl (9.6-12.3); MONO # 0.5 10*3/uL (0.1-1.0); MONO % 12.9 % (3.0-9.0); NEUT # 2.7 10*3/uL (2.3-7.9); NEUT % 68.4 % (47.0-73.0); PLATELET COUNT AUTOMATED 216 10*3/uL (130-400); RED BLOOD COUNT 4.27 10*6/uL (4.50-5.90); RED CELL DISTRI WIDTH 18.2 % (0-14.5); WHITE BLOOD COUNT 3.9 10*3/uL (4.8-10.8)
[2017-07-29 13:36] LABS: ALBUMIN 3.6 gm/dl (3.1-4.5); ALKALINE PHOSPHATASE 102 U/L (45-117); BUN 11 mg/dl (7-24); CHLORIDE 107 mmol/L (98-107); CREATININE 1.01 mg/dL (0.70-1.30); POTASSIUM 3.8 mmol/L (3.5-5.1); SGOT/AST 14 IU/L (3-35); SGPT/ALT 20 U/L (12-78); SODIUM 139 mmol/L (136-145); TOTAL PROTEIN 7.3 gm/dL (6.4-8.2)
[2017-07-29 14:53] LABS: BILIRUBIN NEGATIVE (NEGATIVE); BLOOD NEGATIVE (NEGATIVE); CLARITY CLEAR (CLEAR); COLOR YELLOW (YELLOW); GLUCOSE NEGATIVE (NEGATIVE); KETONE NEGATIVE (NEGATIVE); LEUKO ESTERASE NEGATIVE (NEGATIVE); NITRITE NEGATIVE (NEGATIVE); UROBILINOGEN 0.2 E.U./dl (0.2-1.0)
[2017-07-29 15:00] LABS: BACTERIA TRACE; RBC 0-2 rbc/hpf (0-2); WBC 0-2 wbc/hpf (0-5)
== END 2017-07-29 21:51 | disposition short-term general hospital (02) ==
LOC: ED 12:47
PROVIDERS: Emergency Medicine
DX: R10.9 Unspecified abdominal pain (principal); R19.7 Diarrhea, unspecified; G89.29 Other chronic pain; K21.9 Gastro-esophageal reflux disease without esophagitis; E78.00 Pure hypercholesterolemia, unspecified; E11.65 Type 2 diabetes mellitus with hyperglycemia; E44.0 Moderate protein-calorie malnutrition; Z90.49 Acquired absence of other specified parts of digestive tract; Z87.891 Personal history of nicotine dependence; Z96.659 Presence of unspecified artificial knee joint; Z79.899 Other long term (current) drug therapy; Z79.2 Long term (current) use of antibiotics

== ENCOUNTER 2017-08-19 15:03 | Inpatient (IN) | payer OTHER ==
[~2017-08-19] VITALS: Ht 177.8 cm; Wt 80.8 kg
[2017-08-19 15:38] VITALS: BP 126/89
[2017-08-19 16:11] LABS: BASO % 0.4 % (0.0-1.0); EOS # 0.1 10*3/uL (0.0-0.4); HEMATOCRIT 42.7 % (42.0-52.0); LYMPH # 0.7 10*3/uL (1.3-4.4); LYMPH % 6.6 % (27.0-41.0); MEAN CELL VOLUME 77.4 fl (80.0-94.0); MEAN CORPUSCULAR HGB 23.6 pg (27.0-31.0); MEAN CORPUSCULAR HGB CONC 30.4 g/dl (33.0-37.0); MEAN PLATELET VOLUME 9.8 fl (9.6-12.3); MONO # 0.9 10*3/uL (0.1-1.0); MONO % 7.7 % (3.0-9.0); NEUT # 9.3 10*3/uL (2.3-7.9); PLATELET COUNT AUTOMATED 324 10*3/uL (130-400); RED BLOOD COUNT 5.52 10*6/uL (4.50-5.90); RED CELL DISTRI WIDTH 25.6 % (0-14.5); WHITE BLOOD COUNT 11.1 10*3/uL (4.8-10.8)
[2017-08-19 16:26] LABS: BILIRUBIN NEGATIVE (NEGATIVE); BLOOD NEGATIVE (NEGATIVE); CLARITY SL CLOUDY (CLEAR); COLOR YELLOW (YELLOW); GLUCOSE 1+ (NEGATIVE); KETONE TRACE (NEGATIVE); LEUKO ESTERASE NEGATIVE (NEGATIVE); NITRITE NEGATIVE (NEGATIVE); PH 6.5 (5.0-9.0); UROBILINOGEN 0.2 E.U./dl (0.2-1.0)
[2017-08-19 16:33] LABS: BACTERIA 1+; EPITHELIAL CELLS 0-2; MUCOUS TRACE; RBC 0-2 rbc/hpf (0-2)
[2017-08-19 16:53] LABS: ALBUMIN 3.7 gm/dl (3.1-4.5); ALKALINE PHOSPHATASE 98 U/L (45-117); BUN 8 mg/dl (7-24); CHLORIDE 106 mmol/L (98-107); CREATININE 0.98 mg/dL (0.70-1.30); LIPASE 260 U/L (73-393); POTASSIUM 4.2 mmol/L (3.5-5.1); SGOT/AST 22 IU/L (3-35); SGPT/ALT 29 U/L (12-78); SODIUM 140 mmol/L (136-145); TOTAL PROTEIN 7.5 gm/dL (6.4-8.2)
[2017-08-19 17:30] VITALS: BP 118/74
[2017-08-19 19:18] VITALS: BP 117/78
[2017-08-19 20:00] VITALS: BP 112/73
[2017-08-20] VITALS: BP 110/70
[2017-08-20 06:36] LABS: BASO % 0.5 % (0.0-1.0); EOS # 0.3 10*3/uL (0.0-0.4); EOS % 5.1 % (1.0-4.0); LYMPH # 1.1 10*3/uL (1.3-4.4); LYMPH % 16.7 % (27.0-41.0); MEAN CELL VOLUME 79.3 fl (80.0-94.0); MEAN CORPUSCULAR HGB 23.1 pg (27.0-31.0); MEAN CORPUSCULAR HGB CONC 29.2 g/dl (33.0-37.0); MONO # 0.7 10*3/uL (0.1-1.0); MONO % 10.3 % (3.0-9.0); NEUT # 4.4 10*3/uL (2.3-7.9); NEUT % 67.1 % (47.0-73.0); RED BLOOD COUNT 4.15 10*6/uL (4.50-5.90); RED CELL DISTRI WIDTH 25.3 % (0-14.5); WHITE BLOOD COUNT 6.5 10*3/uL (4.8-10.8)
[2017-08-20 06:38] LABS: BUN 7 mg/dl (7-24); CHLORIDE 108 mmol/L (98-107); POTASSIUM 4.2 mmol/L (3.5-5.1); SODIUM 142 mmol/L (136-145)
[2017-08-20 06:43] LABS: HEMATOCRIT 32.9 % (42.0-52.0); HEMOGLOBIN 9.6 g/dl (14.0-18.0); PLATELET COUNT AUTOMATED 179 10*3/uL (130-400)
[2017-08-20 06:52] LABS: CHOLESTEROL 92 mg/dL (<200); CREATININE 0.75 mg/dL (0.70-1.30); HDL CHOLESTEROL 35 mg/dl (40-60); LDL CHOLESTEROL 41 mg/dL (9-159); PHOSPHOROUS 3.4 mg/dL (2.5-4.9); TRIGLYCERIDES 79 mg/dl (<150); VLDL CHOLESTEROL 16 mg/dL (6-40)
[2017-08-20 07:41] LABS: VITAMIN D, 25-HYDROXY 20.2 ng/mL (30-100)
[2017-08-20 08:00] VITALS: BP 105/67; BP 112/64
[2017-08-20 12:00] VITALS: BP 108/62
[2017-08-20 16:00] VITALS: BP 110/70
[2017-08-20 20:00] VITALS: BP 134/76
[2017-08-21] VITALS: BP 112/69
[2017-08-21 07:11] LABS: BASO % 0.7 % (0.0-1.0); EOS # 0.3 10*3/uL (0.0-0.4); EOS % 5.7 % (1.0-4.0); HEMATOCRIT 33.8 % (42.0-52.0); HEMOGLOBIN 10.3 g/dl (14.0-18.0); LYMPH # 0.5 10*3/uL (1.3-4.4); LYMPH % 9.8 % (27.0-41.0); MEAN CELL VOLUME 79.2 fl (80.0-94.0); MEAN CORPUSCULAR HGB 24.1 pg (27.0-31.0); MEAN CORPUSCULAR HGB CONC 30.5 g/dl (33.0-37.0); MEAN PLATELET VOLUME 9.9 fl (9.6-12.3); MONO # 0.4 10*3/uL (0.1-1.0); MONO % 9.4 % (3.0-9.0); NEUT # 3.4 10*3/uL (2.3-7.9); NEUT % 74.2 % (47.0-73.0); PLATELET COUNT AUTOMATED 190 10*3/uL (130-400); RED BLOOD COUNT 4.27 10*6/uL (4.50-5.90); RED CELL DISTRI WIDTH 25.1 % (0-14.5); WHITE BLOOD COUNT 4.6 10*3/uL (4.8-10.8)
[2017-08-21 07:42] LABS: BUN 5 mg/dl (7-24); CHLORIDE 103 mmol/L (98-107); CREATININE 0.72 mg/dL (0.70-1.30); PHOSPHOROUS 3.8 mg/dL (2.5-4.9); POTASSIUM 3.9 mmol/L (3.5-5.1); SODIUM 140 mmol/L (136-145)
[2017-08-21 08:00] VITALS: BP 122/80
[2017-08-21 12:00] VITALS: BP 124/80
[2017-08-21] MEDS ORDERED: FLAGYL500 MG PO (13:36)
[2017-08-21] MEDS ORDERED: PHENERGAN25 M3 PO (13:45)
[2017-08-21] MEDS ORDERED: CYCLOBENZAPRINE10 MG PO (13:46)
== END 2017-08-21 16:07 | disposition home or self-care (01) | DRG 872 ==
LOC: ED 15:03 → 5E 17:17 → EDHOLD 17:17 → 5E 17:45
PROVIDERS: Internal Medicine; Nurse Practitioner Family
DX: A41.9 Sepsis, unspecified organism (principal); E11.65 Type 2 diabetes mellitus with hyperglycemia; K91.1 Postgastric surgery syndromes; E83.41 Hypermagnesemia; E44.1 Mild protein-calorie malnutrition; F33.9 Major depressive disorder, recurrent, unspecified; K52.9 Noninfective gastroenteritis and colitis, unspecified; K44.9 Diaphragmatic hernia without obstruction or gangrene; K21.9 Gastro-esophageal reflux disease without esophagitis; D50.9 Iron deficiency anemia, unspecified; E86.0 Dehydration; Z96.659 Presence of unspecified artificial knee joint; G89.29 Other chronic pain; M54.5 Low back pain; E55.9 Vitamin D deficiency, unspecified; Z88.8 Allergy status to other drugs, medicaments and biological substances; Z88.1 Allergy status to other antibiotic agents; Z79.899 Other long term (current) drug therapy; Z90.49 Acquired absence of other specified parts of digestive tract; Z87.891 Personal history of nicotine dependence; Z82.5 Family history of asthma and other chronic lower respiratory diseases; Z82.49 Family history of ischemic heart disease and other diseases of the circulatory system; Z83.3 Family history of diabetes mellitus; Z82.3 Family history of stroke; Z82.69 Family history of other diseases of the musculoskeletal system and connective tissue; Z68.25 Body mass index [BMI] 25.0-25.9, adult

== ENCOUNTER 2017-08-25 09:31 | Emergency (ER) | payer OTHER ==
[~2017-08-25] VITALS: Ht 177.8 cm; Wt 78.0 kg
[~2017-08-25 09:31] MED LIST changes: +CYCLOBENZAPRINE10 MG PO; +PHENERGAN25 M3 PO
[2017-08-25 10:01] LABS: BASO % 0.6 % (0.0-1.0); EOS # 0.2 10*3/uL (0.0-0.4); EOS % 4.8 % (1.0-4.0); HEMATOCRIT 35.5 % (42.0-52.0); HEMOGLOBIN 10.8 g/dl (14.0-18.0); LYMPH # 0.7 10*3/uL (1.3-4.4); LYMPH % 14.3 % (27.0-41.0); MEAN CELL VOLUME 78.7 fl (80.0-94.0); MEAN CORPUSCULAR HGB 23.9 pg (27.0-31.0); MEAN CORPUSCULAR HGB CONC 30.4 g/dl (33.0-37.0); MEAN PLATELET VOLUME 8.6 fl (9.6-12.3); MONO # 0.4 10*3/uL (0.1-1.0); MONO % 8.1 % (3.0-9.0); NEUT # 3.6 10*3/uL (2.3-7.9); PLATELET COUNT AUTOMATED 223 10*3/uL (130-400); RED BLOOD COUNT 4.51 10*6/uL (4.50-5.90); RED CELL DISTRI WIDTH 24.5 % (0-14.5)
[2017-08-25 10:19] LABS: ALBUMIN 3.6 gm/dl (3.1-4.5); ALKALINE PHOSPHATASE 78 U/L (45-117); BUN 7 mg/dl (7-24); CHLORIDE 106 mmol/L (98-107); CREATININE 0.74 mg/dL (0.70-1.30); LIPASE 113 U/L (73-393); POTASSIUM 3.8 mmol/L (3.5-5.1); SGOT/AST 7 IU/L (3-35); SGPT/ALT 23 U/L (12-78); SODIUM 141 mmol/L (136-145); TOTAL PROTEIN 7.3 gm/dL (6.4-8.2)
[2017-08-25 11:11] LABS: BILIRUBIN NEGATIVE (NEGATIVE); BLOOD NEGATIVE (NEGATIVE); CLARITY CLEAR (CLEAR); COLOR YELLOW (YELLOW); GLUCOSE NEGATIVE (NEGATIVE); KETONE NEGATIVE (NEGATIVE); LEUKO ESTERASE NEGATIVE (NEGATIVE); NITRITE NEGATIVE (NEGATIVE); PH 5.5 (5.0-9.0); SPECIFIC GRAVITY <= 1.005 (1.005-1.030); UROBILINOGEN 0.2 E.U./dl (0.2-1.0)
== END 2017-08-25 11:30 | disposition home or self-care (01) ==
LOC: ED 09:31
PROVIDERS: Emergency Medicine
DX: R11.2 Nausea with vomiting, unspecified (principal); R10.84 Generalized abdominal pain; R19.7 Diarrhea, unspecified; E11.65 Type 2 diabetes mellitus with hyperglycemia; K21.9 Gastro-esophageal reflux disease without esophagitis; F32.9 Major depressive disorder, single episode, unspecified; Z88.1 Allergy status to other antibiotic agents; Z88.8 Allergy status to other drugs, medicaments and biological substances; Z79.899 Other long term (current) drug therapy; Z90.49 Acquired absence of other specified parts of digestive tract

== ENCOUNTER 2020-10-28 18:06 | Emergency (ER) | payer OTHER ==
[~2020-10-28] VITALS: Wt 81.6 kg
[2020-10-28 18:39] LABS: BASO % 0.7 % (0.0-1.0); EOS # 0.1 10*3/uL (0.0-0.4); EOS % 2.3 % (1.0-4.0); HEMATOCRIT 36.6 % (42.0-52.0); LYMPH # 1.3 10*3/uL (1.3-4.4); LYMPH % 23.5 % (27.0-41.0); MEAN CELL VOLUME 81.2 fl (80.0-94.0); MEAN CORPUSCULAR HGB 25.3 pg (27.0-31.0); MEAN CORPUSCULAR HGB CONC 31.1 g/dl (33.0-37.0); MONO # 0.6 10*3/uL (0.1-1.0); MONO % 11.1 % (3.0-9.0); NEUT # 3.5 10*3/uL (2.3-7.9); NEUT % 62.2 % (47.0-73.0); PLATELET COUNT AUTOMATED 248 10*3/uL (130-400); RED BLOOD COUNT 4.51 10*6/uL (4.50-5.90); WHITE BLOOD COUNT 5.6 10*3/uL (4.8-10.8)
[2020-10-28 18:49] LABS: ACT PARTIAL THROMBO TIME 28.1 SECONDS (20.0-32.1); INTERNATIONAL NORM RATIO 1.1 (2.0-3.5)
[2020-10-28 18:53] LABS: ALBUMIN 3.4 gm/dl (3.1-4.5); ALKALINE PHOSPHATASE 63 U/L (45-117); BUN 17 mg/dl (7-24); CHLORIDE 106 mmol/L (98-107); CREATININE 1.12 mg/dL (0.70-1.30); POTASSIUM 4.1 mmol/L (3.5-5.1); SGOT/AST 16 IU/L (3-35); SGPT/ALT 27 U/L (12-78); SODIUM 138 mmol/L (136-145); TOTAL PROTEIN 6.8 gm/dL (6.4-8.2)
== END 2020-10-29 00:02 | disposition short-term general hospital (02) ==
LOC: ED 18:06
PROVIDERS: Emergency Medicine
DX: T18.128A Food in esophagus causing other injury, initial encounter (principal); K21.9 Gastro-esophageal reflux disease without esophagitis; F32.9 Major depressive disorder, single episode, unspecified; E11.9 Type 2 diabetes mellitus without complications; Z20.822 Contact with and (suspected) exposure to COVID-19; Z96.659 Presence of unspecified artificial knee joint; Z98.890 Other specified postprocedural states; Z88.0 Allergy status to penicillin; Z88.8 Allergy status to other drugs, medicaments and biological substances; Z79.899 Other long term (current) drug therapy; Z85.01 Personal history of malignant neoplasm of esophagus; Z87.891 Personal history of nicotine dependence; Z79.2 Long term (current) use of antibiotics; X58.XXXA Exposure to other specified factors, initial encounter; Y93.89 Activity, other specified; Y92.89 Other specified places as the place of occurrence of the external cause; Y99.8 Other external cause status

== ENCOUNTER 2021-03-18 15:44 | Emergency (ER) | payer OTHER ==
[~2021-03-18] VITALS: Ht 177.8 cm; Wt 78.5 kg
[2021-03-18 16:38] LABS: BILIRUBIN Negative (Negative); BLOOD Negative (Negative); CLARITY Clear (Clear); COLOR Dark Yellow (Yellow); GLUCOSE Negative (Negative); KETONE 3+ (Negative); LEUKO ESTERASE Trace (Negative); NITRITE Negative (Negative); SPECIFIC GRAVITY 1.025 (1.001-1.030)
[2021-03-18 16:44] LABS: PH 8.5 (4.5-8.0)
[2021-03-18 16:46] LABS: BACTERIA TRACE; EPITHELIAL CELLS 0-2; MUCOUS TRACE; RBC 0-2 rbc/hpf (0-2)
[2021-03-18 17:08] LABS: BASO % 0.1 % (0.0-1.0); EOS % 0.2 % (1.0-4.0); HEMATOCRIT 46.4 % (42.0-52.0); LYMPH # 0.8 10*3/uL (1.3-4.4); LYMPH % 9.4 % (27.0-41.0); MEAN CELL VOLUME 94.1 fl (80.0-94.0); MEAN CORPUSCULAR HGB 31.2 pg (27.0-31.0); MEAN CORPUSCULAR HGB CONC 33.2 g/dl (33.0-37.0); MEAN PLATELET VOLUME 9.6 fl (9.6-12.3); MONO # 0.6 10*3/uL (0.1-1.0); MONO % 6.7 % (3.0-9.0); NEUT # 6.8 10*3/uL (2.3-7.9); NEUT % 83.5 % (47.0-73.0); PLATELET COUNT AUTOMATED 203 10*3/uL (130-400); RED BLOOD COUNT 4.93 10*6/uL (4.50-5.90); RED CELL DISTRI WIDTH 13.9 % (0-14.5); WHITE BLOOD COUNT 8.2 10*3/uL (4.8-10.8)
[2021-03-18 17:27] LABS: ALBUMIN 3.8 gm/dl (3.1-4.5); ALKALINE PHOSPHATASE 98 U/L (45-117); BUN 10 mg/dl (7-24); CHLORIDE 108 mmol/L (98-107); CREATININE 0.75 mg/dL (0.70-1.30); LIPASE 30 U/L (73-393); SGOT/AST 16 IU/L (3-35); SGPT/ALT 49 U/L (12-78); SODIUM 140 mmol/L (136-145); TOTAL PROTEIN 7.3 gm/dL (6.4-8.2)
== END 2021-03-18 20:45 | disposition short-term general hospital (02) ==
LOC: ED 15:44
PROVIDERS: Emergency Medicine
DX: E86.0 Dehydration (principal); Z20.822 Contact with and (suspected) exposure to COVID-19; R10.84 Generalized abdominal pain; M54.5 Low back pain; F32.9 Major depressive disorder, single episode, unspecified; E11.9 Type 2 diabetes mellitus without complications; K21.9 Gastro-esophageal reflux disease without esophagitis; Z88.1 Allergy status to other antibiotic agents; Z79.899 Other long term (current) drug therapy; Z96.651 Presence of right artificial knee joint; Z85.01 Personal history of malignant neoplasm of esophagus; Z87.891 Personal history of nicotine dependence

== ENCOUNTER 2021-03-24 23:06 | Inpatient (IN) | payer OTHER ==
[~2021-03-24] VITALS: Ht 177.8 cm; Wt 80.8 kg
[2021-03-24 23:11] VITALS: BP 146/85
[2021-03-24 23:33] LABS: BASO % 0.4 % (0.0-1.0); EOS # 0.2 10*3/uL (0.0-0.4); EOS % 2.1 % (1.0-4.0); HEMATOCRIT 42.9 % (42.0-52.0); LYMPH # 1.9 10*3/uL (1.3-4.4); LYMPH % 23.2 % (27.0-41.0); MEAN CELL VOLUME 93.7 fl (80.0-94.0); MEAN CORPUSCULAR HGB 31.9 pg (27.0-31.0); MEAN PLATELET VOLUME 9.5 fl (9.6-12.3); MONO # 0.7 10*3/uL (0.1-1.0); MONO % 9.1 % (3.0-9.0); NEUT # 5.2 10*3/uL (2.3-7.9); NEUT % 64.8 % (47.0-73.0); PLATELET COUNT AUTOMATED 197 10*3/uL (130-400); RED BLOOD COUNT 4.58 10*6/uL (4.50-5.90); RED CELL DISTRI WIDTH 13.7 % (0-14.5)
[2021-03-24 23:50] LABS: ALBUMIN 3.6 gm/dl (3.1-4.5); ALKALINE PHOSPHATASE 66 U/L (45-117); BUN 11 mg/dl (7-24); CHLORIDE 108 mmol/L (98-107); CREATININE 0.86 mg/dL (0.70-1.30); LIPASE 127 U/L (73-393); POTASSIUM 3.4 mmol/L (3.5-5.1); SGOT/AST 16 IU/L (3-35); SGPT/ALT 30 U/L (12-78); SODIUM 141 mmol/L (136-145); TOTAL PROTEIN 6.5 gm/dL (6.4-8.2)
[2021-03-25 01:30] LABS: BILIRUBIN Negative (Negative); BLOOD Negative (Negative); CLARITY Clear (Clear); COLOR Yellow (Yellow); GLUCOSE Negative (Negative); KETONE Negative (Negative); LEUKO ESTERASE Negative (Negative); NITRITE Negative (Negative); PH 6.5 (4.5-8.0); SPECIFIC GRAVITY 1.025 (1.001-1.030); UROBILINOGEN 0.2 E.U./dl (0.0-1.0)
[2021-03-25 01:53] LABS: RBC 0-2 rbc/hpf (0-2); WBC 0-2 wbc/hpf (0-5)
[2021-03-25 03:00] VITALS: BP 114/67
[2021-03-25] MEDS ORDERED: NEXIUM40 MG PO (04:11)
[2021-03-25] MEDS ORDERED: LYRICA75 M1 PO (04:12)
[2021-03-25] MEDS ORDERED: OXYCONTIN30 M1 PO (04:13)
[2021-03-25 05:54] LABS: BASO % 0.5 % (0.0-1.0); EOS # 0.1 10*3/uL (0.0-0.4); EOS % 2.5 % (1.0-4.0); HEMATOCRIT 42.3 % (42.0-52.0); LYMPH # 1.8 10*3/uL (1.3-4.4); MEAN CELL VOLUME 96.6 fl (80.0-94.0); MEAN CORPUSCULAR HGB 31.5 pg (27.0-31.0); MEAN CORPUSCULAR HGB CONC 32.6 g/dl (33.0-37.0); MONO # 0.5 10*3/uL (0.1-1.0); MONO % 9.3 % (3.0-9.0); NEUT # 3.2 10*3/uL (2.3-7.9); NEUT % 56.5 % (47.0-73.0); PLATELET COUNT AUTOMATED 179 10*3/uL (130-400); RED BLOOD COUNT 4.38 10*6/uL (4.50-5.90); RED CELL DISTRI WIDTH 13.7 % (0-14.5); WHITE BLOOD COUNT 5.7 10*3/uL (4.8-10.8)
[2021-03-25 06:03] LABS: ALBUMIN 3.3 gm/dl (3.1-4.5); BUN 9 mg/dl (7-24); CHLORIDE 111 mmol/L (98-107); CREATININE 0.76 mg/dL (0.70-1.30); POTASSIUM 4.2 mmol/L (3.5-5.1); SODIUM 142 mmol/L (136-145)
[2021-03-25 06:06] LABS: ALKALINE PHOSPHATASE 61 U/L (45-117); SGOT/AST 18 IU/L (3-35); SGPT/ALT 29 U/L (12-78); TOTAL PROTEIN 6.2 gm/dL (6.4-8.2)
[2021-03-25 08:00] VITALS: BP 123/73
[2021-03-25 12:00] VITALS: BP 116/58
[2021-03-25 16:00] VITALS: BP 125/84
[2021-03-25 20:00] VITALS: BP 128/72
[2021-03-26] VITALS: BP 119/73
[2021-03-26 06:00] LABS: BASO % 0.6 % (0.0-1.0); EOS # 0.2 10*3/uL (0.0-0.4); EOS % 4.6 % (1.0-4.0); HEMATOCRIT 43.6 % (42.0-52.0); LYMPH # 1.6 10*3/uL (1.3-4.4); LYMPH % 31.6 % (27.0-41.0); MEAN CELL VOLUME 96.2 fl (80.0-94.0); MEAN CORPUSCULAR HGB 31.1 pg (27.0-31.0); MEAN CORPUSCULAR HGB CONC 32.3 g/dl (33.0-37.0); MEAN PLATELET VOLUME 9.8 fl (9.6-12.3); MONO # 0.4 10*3/uL (0.1-1.0); MONO % 8.9 % (3.0-9.0); NEUT # 2.7 10*3/uL (2.3-7.9); NEUT % 53.9 % (47.0-73.0); PLATELET COUNT AUTOMATED 174 10*3/uL (130-400); RED BLOOD COUNT 4.53 10*6/uL (4.50-5.90); RED CELL DISTRI WIDTH 13.9 % (0-14.5)
[2021-03-26 06:20] LABS: CHLORIDE 110 mmol/L (98-107); POTASSIUM 4.2 mmol/L (3.5-5.1); SODIUM 143 mmol/L (136-145)
[2021-03-26 06:24] LABS: BUN 9 mg/dl (7-24); CREATININE 0.74 mg/dL (0.70-1.30)
[2021-03-26 08:00] VITALS: BP 110/72
[2021-03-26 12:00] VITALS: BP 103/71
== END 2021-03-26 12:21 | disposition home or self-care (01) | DRG 641 ==
LOC: ED 23:06 → 4E 03-25 02:25 → EDHOLD 03-25 02:25 → 4E 03-25 02:45
PROVIDERS: Emergency Medicine; Internal Medicine; ADMIT Student in an Organized Health Care Education/Training Program; ATTEND Student in an Organized Health Care Education/Training Program
DX: E87.6 Hypokalemia (principal); R10.10 Upper abdominal pain, unspecified; F32.9 Major depressive disorder, single episode, unspecified; K21.9 Gastro-esophageal reflux disease without esophagitis; D53.9 Nutritional anemia, unspecified; E87.8 Other disorders of electrolyte and fluid balance, not elsewhere classified; E83.41 Hypermagnesemia; Z96.651 Presence of right artificial knee joint; K91.1 Postgastric surgery syndromes; R00.1 Bradycardia, unspecified; Y83.8 Other surgical procedures as the cause of abnormal reaction of the patient, or of later complication, without mention of misadventure at the time of the procedure; Z90.49 Acquired absence of other specified parts of digestive tract; Z85.01 Personal history of malignant neoplasm of esophagus; Z88.0 Allergy status to penicillin; Z88.1 Allergy status to other antibiotic agents; Z87.891 Personal history of nicotine dependence; Z83.3 Family history of diabetes mellitus; Z82.5 Family history of asthma and other chronic lower respiratory diseases; Z82.49 Family history of ischemic heart disease and other diseases of the circulatory system; Z82.3 Family history of stroke; Y92.89 Other specified places as the place of occurrence of the external cause

== ENCOUNTER 2021-04-14 11:48 | Inpatient (IN) | payer OTHER ==
[~2021-04-14] VITALS: Ht 177.8 cm; Wt 84.5 kg
[~2021-04-14 11:48] MED LIST changes: +LYRICA75 M1 PO; +OXYCONTIN30 M1 PO
[2021-04-14 11:56] VITALS: BP 119/82
[2021-04-14 12:40] LABS: BASO % 0.1 % (0.0-1.0); EOS % 0.1 % (1.0-4.0); HEMATOCRIT 41.2 % (42.0-52.0); LYMPH # 0.5 10*3/uL (1.3-4.4); MEAN CELL VOLUME 93.2 fl (80.0-94.0); MEAN CORPUSCULAR HGB 32.1 pg (27.0-31.0); MEAN CORPUSCULAR HGB CONC 34.5 g/dl (33.0-37.0); MEAN PLATELET VOLUME 9.7 fl (9.6-12.3); MONO # 0.6 10*3/uL (0.1-1.0); MONO % 7.3 % (3.0-9.0); NEUT # 6.5 10*3/uL (2.3-7.9); NEUT % 86.2 % (47.0-73.0); PLATELET COUNT AUTOMATED 154 10*3/uL (130-400); RED BLOOD COUNT 4.42 10*6/uL (4.50-5.90); RED CELL DISTRI WIDTH 13.9 % (0-14.5); WHITE BLOOD COUNT 7.6 10*3/uL (4.8-10.8)
[2021-04-14 12:50] VITALS: BP 117/66
[2021-04-14 12:54] LABS: ALBUMIN 3.4 gm/dl (3.1-4.5); ALKALINE PHOSPHATASE 63 U/L (45-117); BUN 12 mg/dl (7-24); CHLORIDE 109 mmol/L (98-107); CREATININE 0.78 mg/dL (0.70-1.30); LIPASE 33 U/L (73-393); POTASSIUM 3.4 mmol/L (3.5-5.1); SGOT/AST 11 IU/L (3-35); SGPT/ALT 33 U/L (12-78); SODIUM 141 mmol/L (136-145); TOTAL PROTEIN 6.5 gm/dL (6.4-8.2)
[2021-04-14 18:18] VITALS: BP 114/68
[2021-04-14 19:42] VITALS: BP 126/75
[2021-04-15] VITALS: BP 111/72
[2021-04-15 05:29] LABS: ALBUMIN 3.2 gm/dl (3.1-4.5); BUN 10 mg/dl (7-24); CHLORIDE 110 mmol/L (98-107); CREATININE 0.74 mg/dL (0.70-1.30); POTASSIUM 3.9 mmol/L (3.5-5.1); SGOT/AST 12 IU/L (3-35); SGPT/ALT 30 U/L (12-78); SODIUM 142 mmol/L (136-145)
[2021-04-15 05:31] LABS: ALKALINE PHOSPHATASE 58 U/L (45-117); TOTAL PROTEIN 6.3 gm/dL (6.4-8.2)
[2021-04-15 06:28] LABS: BASO % 0.4 % (0.0-1.0); EOS # 0.2 10*3/uL (0.0-0.4); EOS % 3.5 % (1.0-4.0); HEMATOCRIT 41.1 % (42.0-52.0); LYMPH # 0.8 10*3/uL (1.3-4.4); LYMPH % 17.2 % (27.0-41.0); MEAN CELL VOLUME 97.4 fl (80.0-94.0); MEAN CORPUSCULAR HGB 31.8 pg (27.0-31.0); MEAN CORPUSCULAR HGB CONC 32.6 g/dl (33.0-37.0); MEAN PLATELET VOLUME 10.5 fl (9.6-12.3); MONO # 0.7 10*3/uL (0.1-1.0); MONO % 13.9 % (3.0-9.0); NEUT # 3.1 10*3/uL (2.3-7.9); NEUT % 64.8 % (47.0-73.0); PLATELET COUNT AUTOMATED 145 10*3/uL (130-400); RED BLOOD COUNT 4.22 10*6/uL (4.50-5.90); RED CELL DISTRI WIDTH 14.4 % (0-14.5); WHITE BLOOD COUNT 4.8 10*3/uL (4.8-10.8)
[2021-04-15 12:00] VITALS: BP 122/78
[2021-04-15 16:00] VITALS: BP 110/73
[2021-04-15 20:00] VITALS: BP 113/65
[2021-04-16] VITALS: BP 110/65
[2021-04-16 06:10] LABS: BUN 8 mg/dl (7-24); CHLORIDE 106 mmol/L (98-107); CREATININE 0.78 mg/dL (0.70-1.30); POTASSIUM 3.7 mmol/L (3.5-5.1); SODIUM 140 mmol/L (136-145)
[2021-04-16 06:26] LABS: BASO % 0.8 % (0.0-1.0); EOS # 0.2 10*3/uL (0.0-0.4); EOS % 5.5 % (1.0-4.0); HEMATOCRIT 40.5 % (42.0-52.0); LYMPH # 0.9 10*3/uL (1.3-4.4); LYMPH % 23.3 % (27.0-41.0); MEAN CELL VOLUME 96.2 fl (80.0-94.0); MEAN CORPUSCULAR HGB 31.8 pg (27.0-31.0); MEAN CORPUSCULAR HGB CONC 33.1 g/dl (33.0-37.0); MEAN PLATELET VOLUME 10.2 fl (9.6-12.3); MONO # 0.6 10*3/uL (0.1-1.0); MONO % 15.3 % (3.0-9.0); NEUT # 2.2 10*3/uL (2.3-7.9); NEUT % 54.8 % (47.0-73.0); PLATELET COUNT AUTOMATED 148 10*3/uL (130-400); RED BLOOD COUNT 4.21 10*6/uL (4.50-5.90); RED CELL DISTRI WIDTH 14.3 % (0-14.5)
[2021-04-16 08:00] VITALS: BP 122/67
[2021-04-16 12:00] VITALS: BP 140/86
[2021-04-16 16:00] VITALS: BP 114/68
[2021-04-16 20:00] VITALS: BP 123/73
[2021-04-17] VITALS: BP 115/69
[2021-04-17 06:02] LABS: BUN 10 mg/dl (7-24); CHLORIDE 109 mmol/L (98-107); POTASSIUM 3.6 mmol/L (3.5-5.1); SODIUM 142 mmol/L (136-145)
[2021-04-17 06:05] LABS: BASO % 0.7 % (0.0-1.0); EOS # 0.3 10*3/uL (0.0-0.4); EOS % 6.4 % (1.0-4.0); HEMATOCRIT 44.8 % (42.0-52.0); LYMPH # 1.3 10*3/uL (1.3-4.4); LYMPH % 28.7 % (27.0-41.0); MEAN CELL VOLUME 97.4 fl (80.0-94.0); MEAN CORPUSCULAR HGB 31.5 pg (27.0-31.0); MEAN CORPUSCULAR HGB CONC 32.4 g/dl (33.0-37.0); MEAN PLATELET VOLUME 9.6 fl (9.6-12.3); MONO # 0.5 10*3/uL (0.1-1.0); MONO % 11.2 % (3.0-9.0); NEUT # 2.3 10*3/uL (2.3-7.9); NEUT % 52.5 % (47.0-73.0); PLATELET COUNT AUTOMATED 157 10*3/uL (130-400); RED CELL DISTRI WIDTH 14.1 % (0-14.5); WHITE BLOOD COUNT 4.4 10*3/uL (4.8-10.8)
[2021-04-17 08:00] VITALS: BP 118/68
[2021-04-17] MEDS ORDERED: OXYCODONE HCL10 M1 PO (11:41)
[2021-04-17] MEDS ORDERED: STIMULANT LAXA1 EACH PO (11:41)
[2021-04-17] MEDS ORDERED: OXYCONTIN40 M1 PO (11:41)
[2021-04-17] MEDS ORDERED: MIRTAZAPINE15 M2 PO (11:41)
== END 2021-04-17 12:15 | disposition home or self-care (01) | DRG 375 ==
LOC: ED 11:48 → EDHOLD 16:40 → 4E 16:40
PROVIDERS: Internal Medicine; Physician Assistant; Student in an Organized Health Care Education/Training Program; ADMIT Internal Medicine; ATTEND Internal Medicine
DX: C15.9 Malignant neoplasm of esophagus, unspecified (principal); F33.9 Major depressive disorder, recurrent, unspecified; K21.9 Gastro-esophageal reflux disease without esophagitis; M54.5 Low back pain; E87.6 Hypokalemia; E87.8 Other disorders of electrolyte and fluid balance, not elsewhere classified; R73.9 Hyperglycemia, unspecified; Z51.5 Encounter for palliative care; K76.0 Fatty (change of) liver, not elsewhere classified; D64.9 Anemia, unspecified; Z90.49 Acquired absence of other specified parts of digestive tract; Z87.891 Personal history of nicotine dependence; Z83.3 Family history of diabetes mellitus; Z82.49 Family history of ischemic heart disease and other diseases of the circulatory system; Z82.5 Family history of asthma and other chronic lower respiratory diseases; Z88.8 Allergy status to other drugs, medicaments and biological substances; Z79.899 Other long term (current) drug therapy

== ENCOUNTER 2021-05-13 10:52 | Emergency (ER) | payer OTHER ==
[~2021-05-13] VITALS: Ht 177.8 cm; Wt 79.4 kg
[~2021-05-13 10:52] MED LIST changes: +MIRTAZAPINE15 M2 PO; +OXYCONTIN40 M1 PO; +STIMULANT LAXA1 EACH PO
[2021-05-13 11:27] LABS: BASO % 0.1 % (0.0-1.0); EOS % 0.5 % (1.0-4.0); HEMATOCRIT 47.1 % (42.0-52.0); LYMPH # 0.6 10*3/uL (1.3-4.4); LYMPH % 8.1 % (27.0-41.0); MEAN CELL VOLUME 94.6 fl (80.0-94.0); MEAN CORPUSCULAR HGB 31.9 pg (27.0-31.0); MEAN CORPUSCULAR HGB CONC 33.8 g/dl (33.0-37.0); MEAN PLATELET VOLUME 9.9 fl (9.6-12.3); MONO # 0.4 10*3/uL (0.1-1.0); MONO % 5.4 % (3.0-9.0); NEUT # 6.7 10*3/uL (2.3-7.9); NEUT % 85.5 % (47.0-73.0); PLATELET COUNT AUTOMATED 204 10*3/uL (130-400); RED BLOOD COUNT 4.98 10*6/uL (4.50-5.90); RED CELL DISTRI WIDTH 13.4 % (0-14.5); WHITE BLOOD COUNT 7.8 10*3/uL (4.8-10.8)
[2021-05-13 12:24] LABS: ACT PARTIAL THROMBO TIME 27.7 SECONDS (20.0-32.1)
[2021-05-13 12:29] LABS: ALBUMIN 3.4 gm/dl (3.1-4.5); ALKALINE PHOSPHATASE 72 U/L (45-117); BUN 8 mg/dl (7-24); CHLORIDE 109 mmol/L (98-107); CREATININE 0.84 mg/dL (0.70-1.30); POTASSIUM 3.6 mmol/L (3.5-5.1); SGOT/AST 18 IU/L (3-35); SGPT/ALT 34 U/L (12-78); SODIUM 139 mmol/L (136-145); TOTAL PROTEIN 7.2 gm/dL (6.4-8.2)
[2021-05-13 12:30] LABS: TROPONIN I < 0.015 ng/ml (<0.045)
[2021-05-13] MEDS ORDERED: CITROMA296 ML PO (15:45)
== END 2021-05-13 17:00 | disposition home or self-care (01) ==
LOC: ED 10:52
PROVIDERS: Family Medicine
DX: K59.00 Constipation, unspecified (principal); Z88.8 Allergy status to other drugs, medicaments and biological substances; Z87.891 Personal history of nicotine dependence

== ENCOUNTER 2021-07-28 10:56 | Emergency (ER) | payer OTHER ==
[~2021-07-28] VITALS: Wt 86.2 kg
[~2021-07-28 10:56] MED LIST changes: +CITROMA296 ML PO
[2021-07-28] MEDS ORDERED: OXYCODONE HCL10 M1 PO (11:46)
[2021-07-28] MEDS ORDERED: OXYCONTIN40 M1 PO (11:48)
[2021-07-28 11:52] LABS: BASO % 0.3 % (0.0-1.0); EOS # 0.1 10*3/uL (0.0-0.4); EOS % 0.7 % (1.0-4.0); LYMPH # 0.7 10*3/uL (1.3-4.4); LYMPH % 9.2 % (27.0-41.0); MEAN CELL VOLUME 95.5 fl (80.0-94.0); MEAN CORPUSCULAR HGB CONC 33.5 g/dl (33.0-37.0); MEAN PLATELET VOLUME 9.6 fl (9.6-12.3); MONO # 0.5 10*3/uL (0.1-1.0); MONO % 7.4 % (3.0-9.0); PLATELET COUNT AUTOMATED 197 10*3/uL (130-400); RED BLOOD COUNT 5.13 10*6/uL (4.50-5.90); RED CELL DISTRI WIDTH 12.8 % (0-14.5); WHITE BLOOD COUNT 7.3 10*3/uL (4.8-10.8)
[2021-07-28 12:07] LABS: ALBUMIN 3.9 gm/dl (3.1-4.5); ALKALINE PHOSPHATASE 61 U/L (45-117); BUN 10 mg/dl (7-24); CHLORIDE 105 mmol/L (98-107); CREATININE 0.91 mg/dL (0.70-1.30); POTASSIUM 3.9 mmol/L (3.5-5.1); SGOT/AST 11 IU/L (3-35); SGPT/ALT 29 U/L (12-78); SODIUM 141 mmol/L (136-145); TOTAL PROTEIN 7.7 gm/dL (6.4-8.2)
[2021-07-28 12:08] LABS: ETHYL ALCOHOL < 3.0 mg/dl (<3)
[2021-07-28 12:21] LABS: BILIRUBIN Negative (Negative); BLOOD Negative (Negative); CLARITY Clear (Clear); COLOR Yellow (Yellow); GLUCOSE Trace (Negative); KETONE Negative (Negative); LEUKO ESTERASE Negative (Negative); NITRITE Negative (Negative); SPECIFIC GRAVITY 1.015 (1.001-1.030)
[2021-07-28 12:26] LABS: PH 8.5 (4.5-8.0)
[2021-07-28 12:27] LABS: URINE AMPHETAMINES < 1000 (1000ng/ml); URINE BARBITURATES < 200 (200ng/ml); URINE BENZODIAZEPINES < 200 (200ng/ml); URINE CANNABINOIDS (THC) < 50 (50ng/ml); URINE COCAINE < 300 (300ng/ml); URINE METHADONE < 300 (300ng/ml); URINE OPIATES < 300 (300ng/ml)
[2021-07-28 12:28] LABS: URINE PHENCYCLIDINE < 25 (25ng/ml)
[2021-07-28 12:35] LABS: EPITHELIAL CELLS 0-2
== END 2021-07-28 11:58 | disposition home or self-care (01) ==
LOC: ED 10:56
PROVIDERS: Emergency Medicine
DX: F11.23 Opioid dependence with withdrawal (principal); G89.29 Other chronic pain

== ENCOUNTER 2022-01-07 13:29 | Emergency (ER) | payer OTHER ==
[~2022-01-07] VITALS: Ht 177.8 cm; Wt 90.7 kg
[2022-01-07 14:16] LABS: BASO % 0.4 % (0.0-1.0); EOS % 0.5 % (1.0-4.0); HEMATOCRIT 47.4 % (42.0-52.0); LYMPH # 0.8 10*3/uL (1.3-4.4); LYMPH % 9.9 % (27.0-41.0); MEAN CELL VOLUME 93.5 fl (80.0-94.0); MEAN CORPUSCULAR HGB 31.8 pg (27.0-31.0); MEAN PLATELET VOLUME 9.9 fl (9.6-12.3); MONO # 0.5 10*3/uL (0.1-1.0); MONO % 6.5 % (3.0-9.0); NEUT # 6.8 10*3/uL (2.3-7.9); NEUT % 82.3 % (47.0-73.0); PLATELET COUNT AUTOMATED 170 10*3/uL (130-400); RED BLOOD COUNT 5.07 10*6/uL (4.50-5.90); RED CELL DISTRI WIDTH 13.8 % (0-14.5); WHITE BLOOD COUNT 8.3 10*3/uL (4.8-10.8)
[2022-01-07 14:28] LABS: ACT PARTIAL THROMBO TIME 28.2 SECONDS (20.0-32.1)
[2022-01-07 14:45] LABS: ALKALINE PHOSPHATASE 65 U/L (45-117); BUN 7 mg/dl (7-24); CHLORIDE 107 mmol/L (98-107); CREATININE 0.92 mg/dL (0.70-1.30); SGOT/AST 19 IU/L (3-35); SGPT/ALT 32 U/L (12-78); SODIUM 140 mmol/L (136-145)
[2022-01-07] MEDS ORDERED: PERCOCET 10-321 EACH PO (16:16)
[2022-01-07] MEDS ORDERED: OXYCONTIN60 MG PO (16:16)
== END 2022-01-07 16:29 | disposition home or self-care (01) ==
LOC: ED 13:29
PROVIDERS: Emergency Medicine
DX: G89.3 Neoplasm related pain (acute) (chronic) (principal); C15.9 Malignant neoplasm of esophagus, unspecified; F11.23 Opioid dependence with withdrawal; Z88.1 Allergy status to other antibiotic agents; K21.9 Gastro-esophageal reflux disease without esophagitis; Z98.890 Other specified postprocedural states; Z87.891 Personal history of nicotine dependence

== ENCOUNTER 2022-03-03 05:36 | Emergency (ER) | payer OTHER ==
[~2022-03-03] VITALS: Ht 182.8 cm; Wt 95.3 kg
[~2022-03-03 05:36] MED LIST changes: +OXYCONTIN60 MG PO; +PERCOCET 10-321 EACH PO
[2022-03-03 06:23] LABS: BASO % 0.4 % (0.0-1.0); EOS # 0.1 10*3/uL (0.0-0.4); EOS % 1.3 % (1.0-4.0); HEMATOCRIT 43.6 % (42.0-52.0); LYMPH # 0.6 10*3/uL (1.3-4.4); LYMPH % 7.8 % (27.0-41.0); MEAN CELL VOLUME 93.8 fl (80.0-94.0); MEAN PLATELET VOLUME 9.7 fl (9.6-12.3); MONO # 0.8 10*3/uL (0.1-1.0); MONO % 10.9 % (3.0-9.0); NEUT # 5.6 10*3/uL (2.3-7.9); NEUT % 79.3 % (47.0-73.0); PLATELET COUNT AUTOMATED 170 10*3/uL (130-400); RED BLOOD COUNT 4.65 10*6/uL (4.50-5.90); RED CELL DISTRI WIDTH 13.9 % (0-14.5); WHITE BLOOD COUNT 7.1 10*3/uL (4.8-10.8)
[2022-03-03 06:39] LABS: ALKALINE PHOSPHATASE 82 U/L (45-117); BUN 8 mg/dl (7-24); CHLORIDE 107 mmol/L (98-107); CREATININE 0.96 mg/dL (0.70-1.30); POTASSIUM 4.1 mmol/L (3.5-5.1); SGOT/AST 35 IU/L (3-35); SGPT/ALT 34 U/L (12-78); SODIUM 137 mmol/L (136-145); TOTAL PROTEIN 6.7 gm/dL (6.4-8.2)
[2022-03-03] MEDS ORDERED: VIBRA-TAB100 MG PO (09:09)
== END 2022-03-03 09:13 | disposition home or self-care (01) ==
LOC: ED 05:36
PROVIDERS: Internal Medicine
DX: J20.9 Acute bronchitis, unspecified (principal); Z20.822 Contact with and (suspected) exposure to COVID-19; B34.9 Viral infection, unspecified; Z88.1 Allergy status to other antibiotic agents; Z90.49 Acquired absence of other specified parts of digestive tract; Z87.891 Personal history of nicotine dependence

== ENCOUNTER 2022-03-20 04:38 | Emergency (ER) | payer OTHER ==
[~2022-03-20] VITALS: Ht 177.8 cm; Wt 88.5 kg
[~2022-03-20 04:38] MED LIST changes: +VIBRA-TAB100 MG PO
== END 2022-03-20 05:06 | disposition left against medical advice (07) ==
LOC: ED 04:38
DX: M25.562 Pain in left knee (principal); Z88.1 Allergy status to other antibiotic agents; Z79.899 Other long term (current) drug therapy; Z98.890 Other specified postprocedural states; Z90.49 Acquired absence of other specified parts of digestive tract; Z96.651 Presence of right artificial knee joint; Z87.891 Personal history of nicotine dependence; X50.1XXA Overexertion from prolonged static or awkward postures, initial encounter; Y93.89 Activity, other specified; Y92.34 Swimming pool (public) as the place of occurrence of the external cause; Y99.8 Other external cause status

== ENCOUNTER 2022-07-20 05:10 | Emergency (ER) | payer OTHER ==
[~2022-07-20] VITALS: Ht 177.8 cm; Wt 90.7 kg
[~2022-07-20 05:10] MED LIST changes: +LYRICA300 MG PO; +OXYCONTIN10 M1 PO; +ZOLOFT50 MG PO
[2022-07-20 06:24] LABS: BASO % 0.1 % (0.0-1.0); EOS # 0.1 10*3/uL (0.0-0.4); EOS % 1.9 % (1.0-4.0); HEMATOCRIT 43.7 % (42.0-52.0); LYMPH # 0.6 10*3/uL (1.3-4.4); LYMPH % 8.8 % (27.0-41.0); MEAN CELL VOLUME 93.2 fl (80.0-94.0); MEAN CORPUSCULAR HGB 31.1 pg (27.0-31.0); MEAN CORPUSCULAR HGB CONC 33.4 g/dl (33.0-37.0); MEAN PLATELET VOLUME 9.8 fl (9.6-12.3); MONO # 0.6 10*3/uL (0.1-1.0); MONO % 9.2 % (3.0-9.0); NEUT # 5.5 10*3/uL (2.3-7.9); NEUT % 79.6 % (47.0-73.0); PLATELET COUNT AUTOMATED 165 10*3/uL (130-400); RED BLOOD COUNT 4.69 10*6/uL (4.50-5.90); RED CELL DISTRI WIDTH 13.9 % (0-14.5)
[2022-07-20 06:48] LABS: ALKALINE PHOSPHATASE 63 U/L (46-116); BUN 7 mg/dl (9-23); CHLORIDE 103 mmol/L (98-107); CREATININE 0.74 mg/dL (0.70-1.30); LIPASE 21 U/L (12-53); POTASSIUM 3.3 mmol/L (3.4-5.1); SGPT/ALT 20 U/L (10-49); SODIUM 137 mmol/L (136-145)
[2022-07-20] MEDS ORDERED: MOXIFLOXACIN H400 MG PO (09:12)
== END 2022-07-20 09:30 | disposition home or self-care (01) ==
LOC: ED 05:10
PROVIDERS: Emergency Medicine
DX: J69.0 Pneumonitis due to inhalation of food and vomit (principal); Z20.822 Contact with and (suspected) exposure to COVID-19

== ENCOUNTER 2022-09-21 10:14 | Emergency (ER) | payer OTHER ==
[~2022-09-21] VITALS: Ht 177.8 cm; Wt 90.7 kg
[~2022-09-21 10:14] MED LIST changes: +MOXIFLOXACIN H400 MG PO
[2022-09-21 11:18] LABS: BASO % 0.7 % (0.0-1.0); EOS # 0.2 10*3/uL (0.0-0.4); EOS % 3.9 % (1.0-4.0); HEMATOCRIT 46.7 % (42.0-52.0); LYMPH # 1.1 10*3/uL (1.3-4.4); LYMPH % 18.1 % (27.0-41.0); MEAN CELL VOLUME 91.4 fl (80.0-94.0); MEAN CORPUSCULAR HGB 29.2 pg (27.0-31.0); MEAN CORPUSCULAR HGB CONC 31.9 g/dl (33.0-37.0); MEAN PLATELET VOLUME 9.6 fl (9.6-12.3); MONO # 0.7 10*3/uL (0.1-1.0); MONO % 11.4 % (3.0-9.0); NEUT # 3.9 10*3/uL (2.3-7.9); NEUT % 65.4 % (47.0-73.0); PLATELET COUNT AUTOMATED 190 10*3/uL (130-400); RED BLOOD COUNT 5.11 10*6/uL (4.50-5.90); RED CELL DISTRI WIDTH 14.6 % (0-14.5)
[2022-09-21 11:40] LABS: ALKALINE PHOSPHATASE 69 U/L (46-116); BUN 5 mg/dl (9-23); CHLORIDE 103 mmol/L (98-107); LIPASE 21 U/L (12-53); POTASSIUM 3.6 mmol/L (3.4-5.1); SGPT/ALT 27 U/L (10-49); TOTAL PROTEIN 6.9 gm/dL (6.0-8.0)
[2022-09-22] MEDS ORDERED: OMEPRAZOLE40 MG PO (18:37)
[2022-09-22] MEDS ORDERED: PROCHLORPERAZIN10 MG PO (18:39)
[2022-09-22] MEDS ORDERED: ACARBOSE50 MG PO (18:40)
[2022-09-22] MEDS ORDERED: VERAPAMIL HYDRO80 MG PO (18:40)
[2022-09-22] MEDS ORDERED: OXYCONTIN60 MG PO (18:42)
[2022-09-22] MEDS ORDERED: OXYCODONE HCL5 MG PO (18:43)
[2022-09-24] MEDS ORDERED: LEVOFLOXACIN750 M2 PO (11:54)
== END 2022-09-21 13:51 | disposition home or self-care (01) ==
LOC: ED 10:14
PROVIDERS: Emergency Medicine
DX: S83.92XA Sprain of unspecified site of left knee, initial encounter (principal); K21.00 Gastro-esophageal reflux disease with esophagitis, without bleeding; Z88.1 Allergy status to other antibiotic agents; Z79.899 Other long term (current) drug therapy; Z90.49 Acquired absence of other specified parts of digestive tract; Z98.890 Other specified postprocedural states; Z87.891 Personal history of nicotine dependence; X50.1XXA Overexertion from prolonged static or awkward postures, initial encounter; Y93.89 Activity, other specified; Y92.89 Other specified places as the place of occurrence of the external cause; Y99.8 Other external cause status

== ENCOUNTER 2023-01-29 07:06 | Emergency (ER) | payer OTHER ==
[~2023-01-29] VITALS: Ht 177.8 cm; Wt 88.5 kg
[~2023-01-29 07:06] MED LIST changes: +ACARBOSE50 MG PO; +LEVOFLOXACIN750 M2 PO; +OMEPRAZOLE40 MG PO; +OXYCODONE HCL5 MG PO; +PROCHLORPERAZIN10 MG PO; +VERAPAMIL HYDRO80 MG PO
[2023-01-29] MEDS ORDERED: NEXIUM40 MG PO (07:13)
== END 2023-01-29 09:50 | disposition home or self-care (01) ==
LOC: ED 07:06
DX: S69.92XA Unspecified injury of left wrist, hand and finger(s), initial encounter (principal); Z88.8 Allergy status to other drugs, medicaments and biological substances; Z90.49 Acquired absence of other specified parts of digestive tract; Z98.890 Other specified postprocedural states; Z96.651 Presence of right artificial knee joint; Z87.891 Personal history of nicotine dependence; X50.1XXA Overexertion from prolonged static or awkward postures, initial encounter; Y93.89 Activity, other specified; Y92.89 Other specified places as the place of occurrence of the external cause; Y99.8 Other external cause status

== ENCOUNTER 2023-03-28 13:43 | Emergency (ER) | payer OTHER | END 2023-03-28 16:42 | disposition left against medical advice (07) | LOC: ED 13:43 | DX: M54.50 Low back pain, unspecified (principal); R10.9 Unspecified abdominal pain; Z88.0 Allergy status to penicillin; Z88.8 Allergy status to other drugs, medicaments and biological substances; Z53.21 Procedure and treatment not carried out due to patient leaving prior to being seen by health care provider ==

== ENCOUNTER 2023-05-19 08:02 | Emergency (ER) | payer OTHER ==
[~2023-05-19] VITALS: Ht 177.8 cm; Wt 88.5 kg
[~2023-05-19 08:02] MED LIST changes: +PREGABALIN200 MG PO; +Vitamin D (1,000 UNI PO
[2023-05-19 08:58] LABS: BASO % 0.2 % (0.0-1.0); EOS # 0.1 10*3/uL (0.0-0.4); HEMATOCRIT 45.1 % (42.0-52.0); LYMPH # 0.5 10*3/uL (1.3-4.4); LYMPH % 5.9 % (27.0-41.0); MEAN CELL VOLUME 92.2 fl (80.0-94.0); MEAN CORPUSCULAR HGB 30.9 pg (27.0-31.0); MEAN CORPUSCULAR HGB CONC 33.5 g/dl (33.0-37.0); MEAN PLATELET VOLUME 9.5 fl (9.6-12.3); MONO # 0.8 10*3/uL (0.1-1.0); MONO % 9.4 % (3.0-9.0); NEUT # 7.5 10*3/uL (2.3-7.9); NEUT % 83.1 % (47.0-73.0); PLATELET COUNT AUTOMATED 221 10*3/uL (130-400); RED BLOOD COUNT 4.89 10*6/uL (4.50-5.90); RED CELL DISTRI WIDTH 13.7 % (0-14.5)
[2023-05-19 09:09] LABS: ACT PARTIAL THROMBO TIME 28.8 SECONDS (20.0-32.1)
[2023-05-19 09:21] LABS: BILIRUBIN Negative (Negative); BLOOD Negative (Negative); CLARITY Clear (Clear); COLOR Yellow (Yellow); GLUCOSE 1+ (Negative); KETONE Negative (Negative); LEUKO ESTERASE Negative (Negative); NITRITE Negative (Negative); PH 7.5 (4.5-8.0); SPECIFIC GRAVITY 1.015 (1.001-1.030); UROBILINOGEN 0.2 E.U./dl (0.0-1.0)
[2023-05-19 09:25] LABS: ALKALINE PHOSPHATASE 83 U/L (46-116); BUN 8 mg/dl (9-23); CHLORIDE 103 mmol/L (98-107); LIPASE 25 U/L (12-53); POTASSIUM 4.1 mmol/L (3.4-5.1); SGPT/ALT 20 U/L (10-49); TOTAL PROTEIN 7.3 gm/dL (6.0-8.0)
[2023-05-19 09:32] LABS: BACTERIA 1+
[2023-05-19] MEDS ORDERED: LEVOFLOXACIN750 M2 PO (12:46)
== END 2023-05-19 13:07 | disposition home or self-care (01) ==
LOC: ED 08:02
PROVIDERS: Internal Medicine
DX: J18.9 Pneumonia, unspecified organism (principal); M25.561 Pain in right knee; M25.551 Pain in right hip; Z88.1 Allergy status to other antibiotic agents; Z79.899 Other long term (current) drug therapy; Z90.49 Acquired absence of other specified parts of digestive tract; Z98.890 Other specified postprocedural states; Z96.651 Presence of right artificial knee joint; Z87.891 Personal history of nicotine dependence; Z85.01 Personal history of malignant neoplasm of esophagus

== ENCOUNTER 2023-06-14 10:56 | Emergency (ER) | payer OTHER ==
[~2023-06-14] VITALS: Wt 90.7 kg
== END 2023-06-14 15:09 | disposition home or self-care (01) ==
LOC: ED 10:56
DX: U07.1 COVID-19 (principal); J06.9 Acute upper respiratory infection, unspecified; Z88.1 Allergy status to other antibiotic agents; Z79.899 Other long term (current) drug therapy; Z79.2 Long term (current) use of antibiotics; Z98.890 Other specified postprocedural states; Z90.49 Acquired absence of other specified parts of digestive tract; Z96.651 Presence of right artificial knee joint; Z87.891 Personal history of nicotine dependence

== ENCOUNTER 2023-06-19 14:36 | Emergency (ER) | payer OTHER ==
[~2023-06-19] VITALS: Ht 177.8 cm; Wt 90.7 kg
[2023-06-19 16:17] LABS: BASO % 0.1 % (0.0-1.0); EOS # 0.1 10*3/uL (0.0-0.4); EOS % 1.6 % (1.0-4.0); HEMATOCRIT 39.6 % (42.0-52.0); LYMPH # 1.1 10*3/uL (1.3-4.4); LYMPH % 14.5 % (27.0-41.0); MEAN CELL VOLUME 91.2 fl (80.0-94.0); MEAN CORPUSCULAR HGB 28.8 pg (27.0-31.0); MEAN CORPUSCULAR HGB CONC 31.6 g/dl (33.0-37.0); MEAN PLATELET VOLUME 9.4 fl (9.6-12.3); MONO # 0.9 10*3/uL (0.1-1.0); MONO % 11.7 % (3.0-9.0); NEUT # 5.5 10*3/uL (2.3-7.9); NEUT % 71.6 % (47.0-73.0); PLATELET COUNT AUTOMATED 176 10*3/uL (130-400); RED BLOOD COUNT 4.34 10*6/uL (4.50-5.90); RED CELL DISTRI WIDTH 14.4 % (0-14.5); WHITE BLOOD COUNT 7.7 10*3/uL (4.8-10.8)
[2023-06-19 16:39] LABS: ALKALINE PHOSPHATASE 75 U/L (46-116); BUN 8 mg/dl (9-23); CHLORIDE 105 mmol/L (98-107); POTASSIUM 3.9 mmol/L (3.4-5.1); SGPT/ALT 25 U/L (5-49); TOTAL PROTEIN 6.3 gm/dL (6.0-8.0)
[2023-06-19] MEDS ORDERED: DECADRON4 MG PO ×2 (17:30→17:32)
== END 2023-06-19 17:45 | disposition home or self-care (01) ==
LOC: ED 14:36
PROVIDERS: Nurse Practitioner
DX: U07.1 COVID-19 (principal); K21.9 Gastro-esophageal reflux disease without esophagitis; M19.90 Unspecified osteoarthritis, unspecified site; Z88.8 Allergy status to other drugs, medicaments and biological substances; Z96.651 Presence of right artificial knee joint; Z98.890 Other specified postprocedural states; Z90.49 Acquired absence of other specified parts of digestive tract; Z87.891 Personal history of nicotine dependence

== ENCOUNTER 2023-09-16 13:47 | Emergency (ER) | payer OTHER ==
[~2023-09-16] VITALS: Ht 177.8 cm; Wt 93.0 kg
[~2023-09-16 13:47] MED LIST changes: +DECADRON4 MG PO
[2023-09-16 14:24] LABS: BASO % 0.3 % (0.0-1.0); EOS # 0.1 10*3/uL (0.0-0.4); EOS % 0.9 % (1.0-4.0); HEMATOCRIT 45.4 % (42.0-52.0); LYMPH # 1.5 10*3/uL (1.3-4.4); LYMPH % 12.7 % (27.0-41.0); MEAN CORPUSCULAR HGB 27.7 pg (27.0-31.0); MEAN CORPUSCULAR HGB CONC 31.5 g/dl (33.0-37.0); MEAN PLATELET VOLUME 9.8 fl (9.6-12.3); MONO # 0.9 10*3/uL (0.1-1.0); MONO % 7.8 % (3.0-9.0); NEUT # 8.9 10*3/uL (2.3-7.9); PLATELET COUNT AUTOMATED 255 10*3/uL (130-400); RED BLOOD COUNT 5.16 10*6/uL (4.50-5.90); RED CELL DISTRI WIDTH 14.9 % (0-14.5); WHITE BLOOD COUNT 11.5 10*3/uL (4.8-10.8)
[2023-09-16 14:52] LABS: ALKALINE PHOSPHATASE 70 U/L (46-116); BUN 12 mg/dl (9-23); CHLORIDE 109 mmol/L (98-107); LIPASE 27 U/L (12-53); SGPT/ALT 17 U/L (5-49); TOTAL PROTEIN 7.3 gm/dL (6.0-8.0)
[2023-09-16] MEDS ORDERED: HYDROCODONE-AC1 EAC1 PO (17:08)
== END 2023-09-16 17:36 | disposition home or self-care (01) ==
LOC: ED 13:47
PROVIDERS: Physician Assistant Medical
DX: R10.84 Generalized abdominal pain (principal); R11.2 Nausea with vomiting, unspecified; R19.7 Diarrhea, unspecified; M19.90 Unspecified osteoarthritis, unspecified site; Z88.8 Allergy status to other drugs, medicaments and biological substances; Z98.890 Other specified postprocedural states; Z90.49 Acquired absence of other specified parts of digestive tract; Z96.651 Presence of right artificial knee joint; Z87.891 Personal history of nicotine dependence

== ENCOUNTER 2023-12-17 12:56 | Emergency (ER) | payer OTHER ==
[~2023-12-17] VITALS: Ht 177.8 cm; Wt 99.8 kg
[~2023-12-17 12:56] MED LIST changes: +HYDROCODONE-AC1 EAC1 PO
[2023-12-17 14:04] LABS: BASO % 0.5 % (0.0-1.0); EOS # 0.2 10*3/uL (0.0-0.4); HEMATOCRIT 40.7 % (42.0-52.0); LYMPH # 1.2 10*3/uL (1.3-4.4); LYMPH % 20.4 % (27.0-41.0); MEAN CELL VOLUME 87.9 fl (80.0-94.0); MEAN CORPUSCULAR HGB 26.3 pg (27.0-31.0); MEAN PLATELET VOLUME 9.6 fl (9.6-12.3); MONO # 0.7 10*3/uL (0.1-1.0); NEUT # 3.6 10*3/uL (2.3-7.9); NEUT % 62.9 % (47.0-73.0); PLATELET COUNT AUTOMATED 221 10*3/uL (130-400); RED BLOOD COUNT 4.63 10*6/uL (4.50-5.90); RED CELL DISTRI WIDTH 15.8 % (0-14.5); WHITE BLOOD COUNT 5.7 10*3/uL (4.8-10.8)
[2023-12-17] MEDS ORDERED: IOHEXOL 300 MG/ML 100 ML VIAL IV ONE (14:20)
[2023-12-17 14:30] LABS: ALKALINE PHOSPHATASE 71 U/L (46-116); BUN 9 mg/dl (9-23); CHLORIDE 105 mmol/L (98-107); LIPASE 29 U/L (12-53); SGPT/ALT 20 U/L (5-49); TOTAL PROTEIN 6.9 gm/dL (6.0-8.0)
== END 2023-12-17 16:49 | disposition home or self-care (01) ==
LOC: ED 12:56
PROVIDERS: Nurse Practitioner Family
DX: S39.011A Strain of muscle, fascia and tendon of abdomen, initial encounter (principal); Z88.8 Allergy status to other drugs, medicaments and biological substances; Z90.49 Acquired absence of other specified parts of digestive tract; Z98.890 Other specified postprocedural states; Z87.891 Personal history of nicotine dependence; X58.XXXA Exposure to other specified factors, initial encounter; Y93.89 Activity, other specified; Y92.89 Other specified places as the place of occurrence of the external cause; Y99.8 Other external cause status

== ENCOUNTER 2023-12-23 05:45 | Inpatient (IN) | payer OTHER ==
[2023-12-23] VITALS (7 sets, daily range): BP systolic 88–113; BP diastolic 46–65
[~2023-12-23] VITALS: Ht 177.8 cm; Wt 102.1 kg
[2023-12-23 06:44] LABS: BASO % 0.3 % (0.0-1.0); EOS # 0.1 10*3/uL (0.0-0.4); EOS % 1.7 % (1.0-4.0); HEMATOCRIT 39.8 % (42.0-52.0); LYMPH # 0.7 10*3/uL (1.3-4.4); LYMPH % 11.2 % (27.0-41.0); MEAN CELL VOLUME 88.2 fl (80.0-94.0); MEAN CORPUSCULAR HGB 27.1 pg (27.0-31.0); MEAN CORPUSCULAR HGB CONC 30.7 g/dl (33.0-37.0); MEAN PLATELET VOLUME 9.6 fl (9.6-12.3); MONO # 0.6 10*3/uL (0.1-1.0); NEUT # 4.4 10*3/uL (2.3-7.9); NEUT % 76.6 % (47.0-73.0); PLATELET COUNT AUTOMATED 215 10*3/uL (130-400); RED BLOOD COUNT 4.51 10*6/uL (4.50-5.90); RED CELL DISTRI WIDTH 16.4 % (0-14.5); WHITE BLOOD COUNT 5.8 10*3/uL (4.8-10.8)
[2023-12-23 07:06] LABS: ALKALINE PHOSPHATASE 65 U/L (46-116); BUN 10 mg/dl (9-23); CHLORIDE 105 mmol/L (98-107); POTASSIUM 4.4 mmol/L (3.4-5.1); SGPT/ALT 14 U/L (5-49); TOTAL PROTEIN 6.6 gm/dL (6.0-8.0)
[2023-12-23] MEDS ORDERED: AZITHROMYCIN 250 ML IV ONE (08:15)
[2023-12-23] MEDS ORDERED: Ceftriaxone Sodium 1 GM/10 ML SYR IV ONE (08:15)
[2023-12-23] MEDS ORDERED: FEROSUL325 MG PO (08:39)
[2023-12-23] MEDS ORDERED: PREVIDENT DT (08:40)
[2023-12-23] MEDS ORDERED: Acetaminophen/Hydrocodone 5 MG/325 MG TABLET PO PRN (08:40)
[2023-12-23] MEDS ORDERED: ACETAMINOPHEN 325 MG TAB PO PRN (08:40)
[2023-12-23] MEDS ORDERED: Magnesium Hydroxide 30 ML UDC PO PRN (08:40)
[2023-12-23] MEDS ORDERED: Ondansetron Hydrochloride 4 MG/2 ML VIAL IV PRN (08:40)
[2023-12-23] MEDS ORDERED: SODIUM CHLORIDE 0.9% 1,000 ML IV ONE (08:50)
[2023-12-23] MEDS ORDERED: OXYCODONE HCL (IR) 5 MG TAB PO PRN (08:55)
[2023-12-23] MEDS ORDERED: METRONIDAZOLE 100 ML IV SCH (10:00)
[2023-12-23] MEDS ORDERED: Enoxaparin Sodium 40 MG/0.4 ML SYR SC SCH (10:00)
[2023-12-23] MEDS ORDERED: BUPRENORPHINE-1 EAC1 SL (10:27)
[2023-12-23] MEDS ORDERED: OXYCODONE HCL (IR) 10 MG TABLET PO PRN (14:27)
[2023-12-23] MEDS ORDERED: Meropenem 1 GM in SODIUM CHLORIDE 0.9% 100 ML IV SCH (14:30)
[2023-12-23] MEDS ORDERED: SODIUM CHLORIDE 0.9% 1,000 ML IV SCH (15:10)
[2023-12-23] MEDS ORDERED: IBUPROFEN 400 MG TAB PO ONE (15:55)
[2023-12-23 17:44] LABS: BILIRUBIN Negative (Negative); BLOOD Negative (Negative); CLARITY Clear (Clear); COLOR Yellow (Yellow); GLUCOSE Negative (Negative); KETONE Negative (Negative); LEUKO ESTERASE Negative (Negative); NITRITE Negative (Negative); SPECIFIC GRAVITY 1.015 (1.001-1.030); UROBILINOGEN 0.2 E.U./dl (0.0-1.0)
[2023-12-23 18:08] LABS: BACTERIA TRACE; WBC 0-2 wbc/hpf (0-5)
[2023-12-23] MEDS ORDERED: MORPHINE Sulfate 2 MG/ML SYR IV PRN (19:25)
[2023-12-24 02:45] VITALS: BP 98/56
[2023-12-24] MEDS ORDERED: LYRICA300 MG PO (03:02)
[2023-12-24] MEDS ORDERED: PREGABALIN 75 MG CAP PO ONE (03:05)
[2023-12-24] MEDS ORDERED: Pantoprazole Sodium 40 MG VIAL IV SCH (06:00)
[2023-12-24 06:14] LABS: BASO % 0.3 % (0.0-1.0); EOS # 0.2 10*3/uL (0.0-0.4); EOS % 1.6 % (1.0-4.0); LYMPH # 0.8 10*3/uL (1.3-4.4); LYMPH % 7.6 % (27.0-41.0); MEAN CELL VOLUME 87.3 fl (80.0-94.0); MEAN CORPUSCULAR HGB 27.4 pg (27.0-31.0); MEAN CORPUSCULAR HGB CONC 31.4 g/dl (33.0-37.0); MEAN PLATELET VOLUME 9.8 fl (9.6-12.3); MONO # 1.1 10*3/uL (0.1-1.0); MONO % 9.6 % (3.0-9.0); NEUT # 8.8 10*3/uL (2.3-7.9); NEUT % 80.5 % (47.0-73.0); PLATELET COUNT AUTOMATED 200 10*3/uL (130-400); RED BLOOD COUNT 4.24 10*6/uL (4.50-5.90); RED CELL DISTRI WIDTH 17.2 % (0-14.5)
[2023-12-24 07:32] LABS: ALKALINE PHOSPHATASE 60 U/L (46-116); BUN 10 mg/dl (9-23); CHLORIDE 108 mmol/L (98-107); POTASSIUM 3.7 mmol/L (3.4-5.1); SGPT/ALT 12 U/L (5-49)
[2023-12-24 07:40] LABS: VITAMIN D, 25-HYDROXY 22.7 ng/mL (30-100)
[2023-12-24 08:00] VITALS: BP 98/50
[2023-12-24] MEDS ORDERED: AZITHROMYCIN 250 ML IV SCH (09:00)
[2023-12-24] MEDS ORDERED: GUAIFENESIN/DEXTROMETHORPHAN 10 ML UDC PO PRN (09:20)
[2023-12-24] MEDS ORDERED: Albuterol Sulfate 2.5 MG/3 ML VIAL NEB SCH (10:00)
[2023-12-24] MEDS ORDERED: Ceftriaxone Sodium 1 GM in SYRINGE INFUSION 10 ML IV SCH (10:00)
[2023-12-24 12:00] VITALS: BP 97/55
[2023-12-24 16:00] VITALS: BP 86/50
[2023-12-24] MEDS ORDERED: PREGABALIN 75 MG CAP PO SCH (18:00)
[2023-12-24 20:00] VITALS: BP 92/50
[2023-12-25] VITALS: BP 92/49
[2023-12-25 06:18] LABS: BASO % 0.3 % (0.0-1.0); EOS # 0.3 10*3/uL (0.0-0.4); EOS % 3.8 % (1.0-4.0); HEMATOCRIT 34.3 % (42.0-52.0); LYMPH # 0.9 10*3/uL (1.3-4.4); LYMPH % 13.3 % (27.0-41.0); MEAN CELL VOLUME 87.9 fl (80.0-94.0); MEAN CORPUSCULAR HGB 26.9 pg (27.0-31.0); MEAN CORPUSCULAR HGB CONC 30.6 g/dl (33.0-37.0); MEAN PLATELET VOLUME 10.3 fl (9.6-12.3); MONO # 0.7 10*3/uL (0.1-1.0); MONO % 10.8 % (3.0-9.0); NEUT # 4.9 10*3/uL (2.3-7.9); NEUT % 71.4 % (47.0-73.0); PLATELET COUNT AUTOMATED 175 10*3/uL (130-400); RED CELL DISTRI WIDTH 17.2 % (0-14.5); WHITE BLOOD COUNT 6.8 10*3/uL (4.8-10.8)
[2023-12-25 06:34] LABS: BUN 8 mg/dl (9-23); CHLORIDE 106 mmol/L (98-107); POTASSIUM 3.3 mmol/L (3.4-5.1)
[2023-12-25] MEDS ORDERED: POTASSIUM CHLORIDE IN WATER 100 ML IV ONE (07:50)
[2023-12-25 08:00] VITALS: BP 109/55
[2023-12-25] MEDS ORDERED: POTASSIUM CHLORIDE 10 MEQ TAB PO ONE (08:40)
[2023-12-25 12:00] VITALS: BP 107/53
[2023-12-25 16:00] VITALS: BP 97/44
[2023-12-25 20:49] VITALS: BP 102/55
[2023-12-26] VITALS: BP 111/55
[2023-12-26] MEDS ORDERED: POTASSIUM CHLORIDE 10 MEQ TAB PO ONE (07:40)
[2023-12-26 08:00] VITALS: BP 108/59
[2023-12-26] MEDS ORDERED: LEVOFLOXACIN750 M2 PO (10:38)
== END 2023-12-26 11:12 | disposition home or self-care (01) | DRG 871 ==
LOC: ED 05:45 → 4E 08:29 → EDHOLD 08:29 → 4E 15:58
PROVIDERS: Emergency Medicine; Student in an Organized Health Care Education/Training Program; ADMIT Internal Medicine; ATTEND Internal Medicine
DX: A41.9 Sepsis, unspecified organism (principal); J15.0 Pneumonia due to Klebsiella pneumoniae; J15.69 Pneumonia due to other Gram-negative bacteria; J69.0 Pneumonitis due to inhalation of food and vomit; C15.8 Malignant neoplasm of overlapping sites of esophagus; E44.0 Moderate protein-calorie malnutrition; K21.9 Gastro-esophageal reflux disease without esophagitis; K44.9 Diaphragmatic hernia without obstruction or gangrene; G89.3 Neoplasm related pain (acute) (chronic); T17.998A Other foreign object in respiratory tract, part unspecified causing other injury, initial encounter; F32.9 Major depressive disorder, single episode, unspecified; E66.09 Other obesity due to excess calories; G47.30 Sleep apnea, unspecified; Z96.651 Presence of right artificial knee joint; E11.65 Type 2 diabetes mellitus with hyperglycemia; D64.9 Anemia, unspecified; Z90.49 Acquired absence of other specified parts of digestive tract; Z87.19 Personal history of other diseases of the digestive system; Y93.89 Activity, other specified; Y92.89 Other specified places as the place of occurrence of the external cause; Y99.8 Other external cause status; Z88.8 Allergy status to other drugs, medicaments and biological substances; Z83.3 Family history of diabetes mellitus; Z82.49 Family history of ischemic heart disease and other diseases of the circulatory system; Z88.1 Allergy status to other antibiotic agents; Z79.899 Other long term (current) drug therapy; Z87.891 Personal history of nicotine dependence; Z79.1 Long term (current) use of non-steroidal anti-inflammatories (NSAID); Z68.32 Body mass index [BMI] 32.0-32.9, adult